=== PATIENT | female | born 1985 | race Caucasian/White ===

== ENCOUNTER 2017-09-16 11:17 | Emergency (ER) | payer SELFPAY ==
[~2017-09-16] VITALS: Ht 165.1 cm; Wt 111.6 kg
--- OUTSIDE RECORDS SUMMARY | 2017-09-16 11:26 | XMS REPORT | CCD ---
Author Author RUT JOSUE Organization Unknown Address [address] [address] [place], [place] [id number] Care Team Providers Care Event Manager Name Role Phone MARTIN KAISER, VIRGILIO Killian Attphys VIRGILIO SALAZAR MDsutommy Vital Signs Unknown or Not Available. Allergies Allergy Code Allergy Type Reaction Status PENICILLIN 28570 Drug allergy HIVES Active Procedures Procedure Code Procedure Type Date ABDOMEN 2 VIEW DECUB/UPRIGHT 935754381 SNOMED CT 2014 ^CBC W/AUTO DIFF 3608158 SNOMED CT 07/18/2014 URINALYSIS C&S IF IND 295042856 SNOMED CT 07/18/[address] 07/18/2014 CBC W/ AUTO DIFF (RFLX MAN DIFF IF IND) 7665879 SNOMED CT 07/18/2014 COMPREHENSIVE METABOLIC PANEL 546840154 SNOMED CT [address] 07/18/[address] 07/18/2014 History of Immunizations Immunization Code Date Td (adult), adsorbed 09 11/04/2002 HPV, quadrivalent 62 04/25/2006 HPV, quadrivalent 62 07/25/2006 Tdap 115 10/11/2010 Problems Problem Code Start Date Resolved Date Status Cyclical vomiting, intractable 78695362 Active GASTROENTERITIS 5589 Active Results COMPREHENSIVE METABOLIC PANEL - Collect Date/Time: 07/18/2014 09:25 Test Name Code Test Result Test Units Test Ref Range GLUCOSE 2345-7 132 MG/DL L=70 H=100 SODIUM 2951-2 140 MEQ/L L=135 H=148 POTASSIUM 2823-3 3.8 MEQ/L L=3.5 H=5.3 CHLORIDE 2075-0 106 MEQ/L L=96 H=110 CO2 2028-9 26 MEQ/L L=22 H=29 BUN 3094-0 7 MG/DL L=8 H=22 CREATININE 2160-0 0.8 MG/DL L=0.6 H=1.6 SGOT/AST 1920-8 15 IU/L L=10 H=40 SGPT/ALT 1742-6 27 IU/L L=8 H=54 ALK PHOS 6768-6 57 IU/L L=35 H=115 TOTAL PROTEIN 2885-2 6.7 G/DL L=5.5 H=8.5 ALBUMIN 1751-7 3.3 G/DL L=3.1 H=5.4 TOTAL BILI 1975-2 1.0 MG/DL L=0.0 H=1.5 CALCIUM 08837-4 9.5 MG/DL L=8.2 H=10.6 AGE 28 yrs GFR NonAA 87 GFR AA 105 eGFR >60 N/A eGFR AA* >60 N/A LIPASE - Collect Date/Time: 07/18/2014 09:25 Test Name Code Test Result Test Units Test Ref Range LIPASE 3040-3 12 U/L L=8 H=78 CBC W/ AUTO DIFF (RFLX MAN DIFF IF IND) - Collect Date/Time: 07/18/2014 09:25 Test Name Code Test Result Test Units Test Ref Range WBC 87962-6 7.9 TH/CMM L=4.5 H=10.8 RBC 789-8 4.65 ML/CMM L=4.20 H=5.40 HGB 718-7 14.4 G/DL L=12.0 H=16.0 HCT 4544-3 41.0 % L=37.0 H=47.0 MCV 88 FL L=81 H=99 MCH 31.0 PG L=27.0 H=33.0 MCHC 35.1 G/DL L=31.0 H=36.0 RDW SD 41 FL L=36 H=50 RDW CV 12.9 % L=0.0 H=14.8 MPV 10.8 FL L=9.3 H=12.5 PLT 777-3 251 TH/CMM L=130 H=440 NRBC# 0.00 TH/CMM L=0.00 H=0.00 NRBC% 0.0 /100WBC L=0.0 H=2.0 %NEUT 69.4 % %LYMP 21.7 % %MONO 6.7 % %EOS 1.9 % %BASO 0.3 % #NEUT 5.51 TH/CMM L=2.10 H=8.20 #LYMP 1.72 TH/CMM L=0.90 H=5.20 #MONO 0.53 TH/CMM L=0.16 H=1.00 #EOS 0.15 TH/CMM L=0.00 H=0.80 #BASO 0.02 TH/CMM L=0.00 H=0.20 MANUAL DIFF NOT IND N/A TEST - Collect Date/Time: 07/18/2014 09:25 Test Name Code Test Result Test Units Test Ref Range TEST 2118-8 NEGATIVE N/A AMYLASE - Collect Date/Time: 07/18/2014 09:25 Test Name Code Test Result Test Units Test Ref Range AMYLASE 1798-8 35 IU/L L=25 H=125 URINALYSIS C&S IF IND - Collect Date/Time: 07/18/2014 10:01 Test Name Code Test Result Test Units Test Ref Range COLOR YELLOW N/A NL: YELLOW APPEARANCE CLEAR N/A NL: CLEAR SPEC GRAV 1.025 N/A NL: 1.002 - 1.022 pH 6.5 N/A NL: 5 - 9 PROTEIN 30 N/A NL: NEGATIVE mg/dl GLUCOSE NEGATIVE N/A NL: NEGATIVE mg/dl KETONE TRACE N/A NL: NEGATIVE mg/dl BILIRUBIN NEGATIVE N/A NL: NEGATIVE BLOOD NEGATIVE N/A NL: NEGATIVE NITRITE NEGATIVE N/A NL: NEGATIVE LEUK SCREEN NEGATIVE N/A NL: NEGATIVE WBC/HPF NEGATIVE N/A NL: NEGATIVE RBC/HPF NEGATIVE N/A NL: NEGATIVE CASTS/LPF NEGATIVE N/A NL: NEGATIVE CRYSTALS TRACE AMORPH N/A NL: NEGATIVE MUCOUS THRDS 1+ N/A NL: NEGATIVE BACTERIA FEW N/A NL: NEGATIVE EPITH CELLS 1+ SQUAMOUS N/A NL: NEGATIVE TRICHOMONAS NEGATIVE N/A NL: NEGATIVE YEAST NEGATIVE N/A NL: NEGATIVE CULT SET UP? NO N/A Active Medications Unknown or Not Available. Medications Administered During Visit Unknown or Not Available. Encounters Encounter Diagnosis Diagnosis Code Start Date INFECTIOUS ENTERITIS NOS 0090 07/18/2014 Social History Smoking Status Code Start Date End Date Never smoker [id number] Patient Decision Aids Unknown or Not Available. Discharge Instructions You were admitted to [facility] on 07/18/2014 with a principal diagnosis of INFECTIOUS ENTERITIS NOS. You were discharged from [facility] on 07/18/2014. Should you have any questions prior to discharge, please contact a member of your healthcare team. If you have left the hospital and have any questions, please contact your primary care physician. Chief Complaint and Reason For Visit Chief Complaint Date of Onset CONSTIPATION VOMITING Function Status Unknown or Not Available. Referral/Transition of Care Unknown or Not Available.
--- OUTSIDE RECORDS SUMMARY | 2017-09-16 11:26 | XMS REPORT | CCD ---
Author Author RIDDHI VALENCIA Organization Unknown Address [address] [address] [place] [address] Care Team Providers Care Hand Zipper Trimmer Name Role Phone MARCELINA PHYS, JACK ER Attphys MARCELINA PHYS, JACK ER Prisurg Allergies Allergy Code Allergy Type Reaction Status No Known Drug Allergies 0 Drug allergy Active Active Medications Medication Code Dose Units Frequency Route Modification Start Date/Time Protonix 40MG Oral Tablet, Enteric Coated 569815 40 MILLIGRAMS DAILY ORAL 06/27/2015 10:00 Prescription Detail 40 MILLIGRAMS ORAL DAILY Problems Problem Code Start Date Resolved Date Status Cyclical vomiting, intractable 25129529 Active Hypokalemia 77784281 08/24/2014 Active Procedures Unknown or Not Available. Results Unknown or Not Available. Encounters Encounter Diagnosis Diagnosis Code Start Date Cramp and spasm R252 07/06/2016 Function Status Unknown or Not Available. History of Immunizations Immunization Code Date Td (adult), adsorbed 09 11/04/2002 HPV, quadrivalent 62 04/25/2006 HPV, quadrivalent 62 07/25/2006 Tdap 115 10/11/2010 Social History Smoking Status Code Start Date End Date Never smoker 924300140 Vital Signs Unknown or Not Available. Function Status Unknown or Not Available. Goals Unknown or Not Available. ASSESSMENTS Unknown or Not Available. Health Concerns Section Unknown or Not Available.
--- OUTSIDE RECORDS SUMMARY | 2017-09-16 11:26 | XMS REPORT | CCD ---
Author Author RUT JOSUE Organization Unknown Address [address] [facility] [address] [place] [address] Care Team Providers Care Bend Sorter Name Role Phone WEST ELIZABETH ER, MAGALIS DO Attphys WEST ELIZABETH ER, MAGALIS DO Prisurg Allergies Allergy Code Allergy Type Reaction Status No Known Drug Allergies 0 Drug allergy Active Active Medications Medication Code Dose Units Frequency Route Modification Start Date/Time Protonix 40MG Oral Tablet, Enteric Coated 341955 40 MILLIGRAMS DAILY ORAL 06/27/2015 10:00 Prescription Detail 40 MILLIGRAMS ORAL DAILY Problems Problem Code Start Date Resolved Date Status Cyclical vomiting, intractable 94097763 Active Hypokalemia 79416702 08/24/2014 Active Procedures Procedure Code Procedure Type Date ^UA AUTO DIPSTICK ONLY 725486105 SNOMED CT 07/01/2016 UA ROUTINE C&S IF IND 488043812 SNOMED CT 07/01/2016 RAPID DRUG SCREEN 412173607 SNOMED CT 07/01/[address] 07/01/[address] 07/01/2016 ^CBC W/AUTO DIFF 4748931 SNOMED CT 07/01/[address] 07/01/[address] 07/01/2016 COMPREHENSIVE METABOLIC PANEL 983474804 SNOMED CT 2016 CBC W/ AUTO DIFF (RFLX MAN DIFF IF IND) 5294850 SNOMED CT 07/01/2016 Results COMPREHENSIVE METABOLIC PANEL - Collect Date/Time: 07/01/2016 08:15 Test Name Code Test Result Test Units Test Ref Range GLUCOSE 2345-7 159 MG/DL L=70 H=100 SODIUM 2951-2 134 MEQ/L L=135 H=148 POTASSIUM 2823-3 2.6 MEQ/L L=3.5 H=5.3 CHLORIDE 2075-0 92 MEQ/L L=96 H=110 CO2 2028-9 26 MEQ/L L=22 H=29 BUN 3094-0 13 MG/DL L=8 H=22 CREATININE 2160-0 0.8 MG/DL L=0.6 H=1.6 SGOT/AST 1920-8 17 IU/L L=10 H=40 SGPT/ALT 1742-6 25 IU/L L=8 H=54 ALK PHOS 6768-6 64 IU/L L=35 H=115 TOTAL PROTEIN 2885-2 7.6 G/DL L=5.5 H=8.5 ALBUMIN 1751-7 4.6 G/DL L=3.1 H=5.4 TOTAL BILI 1975-2 1.3 MG/DL L=0.0 H=1.5 CALCIUM 28105-4 9.8 MG/DL L=8.2 H=10.6 AGE 30 yrs GFR NonAA 85 GFR AA 103 eGFR >60 N/A eGFR AA* >60 N/A LIPASE - Collect Date/Time: 07/01/2016 08:15 Test Name Code Test Result Test Units Test Ref Range LIPASE 3040-3 8 U/L L=8 H=78 MAGNESIUM - Collect Date/Time: 07/01/2016 08:15 Test Name Code Test Result Test Units Test Ref Range MAGNESIUM 97560-4 2.2 MG/DL L=1.7 H=2.8 PHOSPHORUS - Collect Date/Time: 07/01/2016 08:15 Test Name Code Test Result Test Units Test Ref Range PHOSPHORUS 2777-1 2.7 MG/DL L=2.5 H=4.5 RAPID DRUG SCREEN - Collect Date/Time: 07/01/2016 10:20 Test Name Code Test Result Test Units Test Ref Range Cannabinoids (THC) NON-NEGATIVE N/A NEG: < 50 ng/ml Phencyclidine (PCP) NEGATIVE N/A NEG: < 25 ng/ ml Cocaine NEGATIVE N/A NEG: < 300 ng/ml Methamphetamine NEGATIVE N/A NEG: < 1000 ng/ml Opiates NEGATIVE N/A NEG: < 300 ng/ml Amphetamine NEGATIVE N/A NEG: < 1000 ng/ml Benzodiazepines NEGATIVE N/A NEG: < 300 ng/ml Tricyclic Antidepres NEGATIVE N/A NEG: < 300 ng/ ml Methadone NEGATIVE N/A NEG: < 300 ng/ml Barbiturates NEGATIVE N/A NEG: < 200 ng/ml Oxycodone NEGATIVE N/A NEG: < 100 ng/ml Propoxyphene (PPX) NEGATIVE N/A NEG: < 300 ng/ ml CBC W/ AUTO DIFF (RFLX MAN DIFF IF IND) - Collect Date/Time: 07/01/2016 08:15 Test Name Code Test Result Test Units Test Ref Range WBC 63779-9 15.0 TH/CMM L=4.5 H=10.8 RBC 789-8 5.05 ML/CMM L=4.20 H=5.40 HGB 718-7 15.5 G/DL L=12.0 H=16.0 HCT 4544-3 41.6 % L=37.0 H=47.0 MCV 82 FL L=81 H=99 MCH 30.7 PG L=27.0 H=33.0 MCHC 37.3 G/DL L=31.0 H=36.0 RDW SD 35 FL L=36 H=50 RDW CV 11.8 % L=0.0 H=14.8 MPV 10.1 FL L=9.3 H=12.5 PLT 777-3 339 TH/CMM L=130 H=440 NRBC# 0.00 TH/CMM L=0.00 H=0.00 NRBC% 0.0 /100WBC L=0.0 H=2.0 %NEUT 75.8 % %LYMP 15.4 % %MONO 8.2 % %EOS 0.1 % %BASO 0.1 % #NEUT 11.36 TH/CMM L=2.10 H=8.20 #LYMP 2.31 TH/CMM L=0.90 H=5.20 #MONO 1.23 TH/CMM L=0.16 H=1.00 #EOS 0.02 TH/CMM L=0.00 H=0.80 #BASO 0.02 TH/CMM L=0.00 H=0.20 MANUAL DIFF NOT IND N/A UA ROUTINE C&S IF IND - Collect Date/Time: 07/01/2016 10:00 Test Name Code Test Result Test Units Test Ref Range COLOR YELLOW N/A NL: YELLOW APPEARANCE CLEAR N/A NL: CLEAR SPEC GRAV 1.010 N/A NL: 1.002 - 1.022 pH 8.0 N/A NL: 5 - 9 PROTEIN NEGATIVE N/A NL: NEGATIVE mg/dl GLUCOSE NEGATIVE N/A NL: NEGATIVE mg/dl KETONE 15 N/A NL: NEGATIVE mg/dl BILIRUBIN NEGATIVE N/A NL: NEGATIVE BLOOD NEGATIVE N/A NL: NEGATIVE NITRITE NEGATIVE N/A NL: NEGATIVE LEUK SCREEN NEGATIVE N/A NL: NEGATIVE MICRO INDICATED? NOT INDICATED N/A TEST - Collect Date/Time: 07/01/2016 08:15 Test Name Code Test Result Test Units Test Ref Range TEST 2118-8 NEGATIVE N/A Function Status Unknown or Not Available. History of Immunizations Immunization Code Date Td (adult), adsorbed 11/04/2002 HPV, quadrivalent 62 04/25/2006 HPV, quadrivalent 62 07/25/2006 Tdap 115 10/11/2010 Plan of Treatment Unknown or Not Available. Social History Smoking Status Code Start Date End Date Never smoker [id number] Vital Signs Unknown or Not Available. Function Status Unknown or Not Available. Goals Unknown or Not Available. ASSESSMENTS Unknown or Not Available. Health Concerns Section Unknown or Not Available.
--- OUTSIDE RECORDS SUMMARY | 2017-09-16 11:28 | XMS REPORT ---
Author Author Rohan Marlow [facility] Address [address] [place], [place] [id number] Care Team Providers Care Chemotherapist Name Role Phone Rohan Marlow PCP Allergies and Adverse Reactions Name Reaction Notes PENICILLINS unknown mother told her as a child Plan of Treatment Not available. Medications Active Name Start Date Estimated Completion Date SIG Comments lisinopril-hydrochlorothiazide 20-12.5 mg oral tablet 01/22/2015 take 1 tablet by oral route once daily Protonix 40 mg oral tablet,delayed release (DR/EC) take 1 tablet (40 mg ) by oral route once daily Zofran (as hydrochloride) 4 mg oral tablet take 1 tablet by oral route Q4-6H PRN promethazine 25 mg oral tablet take 1 tablet (25 mg) by oral route every 4-6 hours as needed Name Start Date Expiration Date SIG Comments Lotrisone 1-0.05 % topical cream 11/03/2009 11/10/2009 apply to the affected and surrounding areas of skin by topical route 2 times per day morning and evening for 7 days Zithromax Z-Willian 250 mg oral tablet 01/04/2010 01/09/2010 take 2 tablets ( 500 mg) by oral route once daily for 1 day then 1 tablet (250 mg) by oral route once daily for 4 days Macrobid 100 mg oral capsule 04/29/2010 05/06/2010 take 1 capsule (100 mg) by oral route every 12 hours with food for 7 days Zofran (as hydrochloride) 4 mg oral tablet 05/21/2010 06/20/2010 One tablet every 8 hours as needed for nausea clotrimazole 1 % topical cream 05/25/2010 07/24/2010 apply to the affected and surrounding areas of skin by topical route 2 times per day in the morning and evening for 30 days Zofran (as hydrochloride) 8 mg oral tablet 09/30/2010 09/30/2010 Take one tablet every 8 hours as needed for nausea acyclovir 400 mg oral tablet 10/05/2010 11/04/2010 take 1 tablet by oral route 2 times a day for 30 days Flexeril 10 mg oral tablet 02/15/2011 take 1 tablet by mouth at bedtime. cyclobenzaprine 10 mg oral tablet 06/13/2013 07/04/2013 take 1 tablet (10 mg) by oral route 3 times per day for 21 days azithromycin 250 mg oral tablet 07/25/2013 07/30/2013 take 2 tablets (500 mg) by oral route once daily for 1 day then 1 tablet (250 mg) by oral route once daily for 4 days Carafate 1 gram oral tablet 08/15/2014 11/13/2014 take 1 tablet (1 gram) by oral route 4 times per day on an empty stomach 1 hour before meals and at bedtime for 30 days Flagyl 500 mg oral tablet 08/18/2014 09/01/2014 take 1 tablet (500 mg) by oral route 3 times per day for 14 days Carafate 1 gram oral tablet 12/11/2014 03/11/2015 take 1 tablet by oral route 3 times a day for 30 days Nexium 40 mg oral capsule,delayed release(DR/EC) 12/11/2014 03/11/2015 take 1 capsule by oral route daily for 30 days in the AM amoxicillin 500 mg oral tablet 01/22/2015 01/29/2015 take 2 tablets by oral route 2 times a day for 7 days clindamycin HCl 300 mg oral capsule 03/24/2015 03/31/2015 take 1 capsule (300 mg) by oral route 2 times per day for 7 days Discontinued Name Start Date Discontinued Date SIG Comments Valtrex 500 mg oral tablet 10/04/2010 10/05/2010 take 1 tablet (500 mg) by oral route daily for 30 days Formulary Compliance Mobic 15 mg oral tablet 06/13/2013 08/05/2014 take 1 tablet (15 mg) by oral route once daily Reglan 10 mg oral tablet 08/01/2014 12/11/2014 take 1 tablet (10 mg) by oral route 4 times per day as needed for nausea and/or vomiting Ambien 10 mg oral tablet 12/11/2014 take 1 tablet (10 mg) by oral route once daily at bedtime pantoprazole 40 mg oral tablet,delayed release (DR/EC) 08/15/2014 12/11/2014 take 1 tablet (40 mg) by oral route once daily for 30 days Biaxin 500 mg oral tablet 08/18/2014 09/03/2014 take 1 tablet (500 mg) by oral route 2 times per day for 14 days tramadol 50 mg oral tablet 01/22/2015 03/24/2015 take 1 tablet (50 mg) by oral route every 6 hours as needed Problem List Description Status Onset Abdominal Pain, RUQ Active Nausea & vomiting Active Back pain Active Vital Signs Date Time BP-Sys(mm[Hg] BP-Tiffany(mm[Hg]) HR(bpm) RR(rpm) Temp WT HT HC BMI BSA BMI Percentile O2 Sat(%) 09/18/2015 11:14:00 AM 130 mmHg 72 mmHg 83 bpm 14 rpm 98.1 F 237.375 lbs 65 in 39.50 kg/m2 2.22 m2 98 % 06/24/2015 10:49:00 AM 156 mmHg 86 mmHg 71 bpm 24 rpm 95.3 F 229 lbs 65 in 38.1072 kg/m 2.1826 m 100 % 03/24/2015 2:50:00 PM 130 mmHg 68 mmHg 67 bpm 18 rpm 97.2 F 245.375 lbs 65 in 40.83 kg/m2 2.26 m2 98 % 02/18/2015 9:45:00 AM 118 mmHg 79 mmHg 75 bpm 20 rpm 98.1 F 246.6 lbs 99 % 01/22/2015 9:08:00 AM 140 mmHg 80 mmHg 81 bpm 18 rpm 97.9 F 252.125 lbs 65 in 41.96 kg/m2 2.29 m2 99 % 12/11/2014 9:27:00 AM 132 mmHg 72 mmHg 83 bpm 18 rpm 96.6 F 247.375 lbs 65 in 41.1649 kg/m 2.2685 m 99 % 08/05/2014 9:55:00 AM 132 mmHg 86 mmHg 84 bpm 20 rpm 96 F 227 lbs 65 in 37.77 kg/m2 2.17 m2 99 % 08/01/2014 9:28:00 AM 84 bpm 20 rpm 98.1 F 227.4 lbs 100 % 07/25/2013 1:50:00 PM 120 mmHg 72 mmHg 82 bpm 16 rpm 98.2 F 98 % 06/13/2013 3:04:00 PM 128 mmHg 80 mmHg 76 bpm 18 rpm 98.3 F 98 % 07/16/2012 11:25:00 AM 94 bpm 20 rpm 97 F 252 lbs 63 in 44.6393 kg/m 2.2541 m 99 % 03/22/2011 10:14:00 AM 128 mmHg 76 mmHg 82 bpm 18 rpm 98.1 F 217.375 lbs 65 in 36.17 kg/m2 2.13 m2 02/15/2011 10:32:00 AM 126 mmHg 62 mmHg 68 bpm 18 rpm 97.2 F 216.25 lbs 65.5 in 35.4382 kg/m 2.1291 m 01/17/2011 10:02:00 AM 128 mmHg 53 mmHg 74 bpm 97.6 F 205 lbs 65.5 in 33.59 kg/m2 2.07 m2 12/29/2010 11:21:00 AM 123 mmHg 68 mmHg 72 bpm 97.2 F 205 lbs 65.5 in 33.5946 kg/m 2.073 m 09/29/2010 3:19:00 PM 123 mmHg 66 mmHg 80 bpm 98.4 F 212.375 lbs 65.5 in 34.80 kg/m2 2.11 m2 07/28/2010 10:29:00 AM 115 mmHg 70 mmHg 94 bpm 97.1 F 211 lbs 99 % 06/21/2010 10:14:00 AM 135 mmHg 82 mmHg 89 bpm 96.4 F 214.375 lbs 99 % 05/21/2010 11:27:00 AM 110 mmHg 75 mmHg 71 bpm 97.2 F 206.25 lbs 99 % 04/29/2010 2:03:00 PM 115 mmHg 70 mmHg 107 bpm 18 rpm 97.8 F 202.25 lbs 99 % 03/05/2010 9:15:00 AM 135 mmHg 82 mmHg 66 bpm 98.3 F 229 lbs 100 % 02/15/2010 1:35:00 PM 130 mmHg 72 mmHg 68 bpm 16 rpm 98.1 F 241.125 lbs 01/07/2010 9:27:00 AM 124 mmHg 76 mmHg 60 bpm 16 rpm 97.7 F 236.25 lbs 01/04/2010 11:27:00 AM 132 mmHg 78 mmHg 72 bpm 16 rpm 98.9 F 236.5 lbs 11/27/2009 10:13:00 AM 123 mmHg 85 mmHg 63 bpm 97.9 F 238.375 lbs 99 % 11/03/2009 11:11:00 AM 137 mmHg 80 mmHg 80 bpm 16 rpm 97.8 F 237 lbs 11/03/2009 11:03:00 AM 132 mmHg 80 mmHg 11/03/2009 11:03:00 AM 138 mmHg 82 mmHg 11/03/2009 11:03:00 AM 128 mmHg 80 mmHg 07/20/2009 2:08:00 PM 114 mmHg 89 mmHg 98 bpm 22 rpm 242.562 lbs 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 Alcohol Use Tobacco Never smoker History of Procedures Date Ordered Description Order Status 12/11/2014 12:00 AM COMPLETE CBC W/AUTO DIFF WBC Returned 12/11/2014 12:00 AM COMPREHEN METABOLIC PANEL Returned 12/11/2014 12:00 AM HELICOBACTER PYLORI ANTIBODY Returned 01/17/2011 12:00 AM URINE TEST Reviewed 01/17/2011 12:00 AM INSERT INTRAUTERINE DEVICE Reviewed 01/17/2011 12:00 AM Mirena Reviewed 03/22/2011 12:00 AM X-RAY EXAM SACRUM TAILBONE Reviewed 09/18/2015 12:00 AM Decadron, Per 1 Mg [facility]# [id number] Reviewed 09/18/2015 12:00 AM Depo-Medrol, Per 80 Mg [facility]#[address]-97 Reviewed 07/16/2012 12:00 AM Depo-Medrol 80 mg [facility]#[id number] Reviewed 07/16/2012 12:00 AM Decadron 4 mg [facility]#[id number] Reviewed 07/16/2012 12:00 AM THER/PROPH/DIAG INJ SC/IM Reviewed 11/03/2009 12:00 AM COMPLETE CBC W/AUTO DIFF WBC Reviewed 11/03/2009 12:00 AM COMPREHEN METABOLIC PANEL Reviewed 01/04/2010 12:00 AM HERPES SIMPLEX TYPE 1 TEST Reviewed 02/25/2010 12:00 AM THER/PROPH/DIAG INJ SC/IM Reviewed 03/01/2010 12:00 AM THER/PROPH/DIAG INJ SC/IM Reviewed 03/05/2010 12:00 AM OBSTETRIC PANEL Reviewed 03/05/2010 12:00 AM URINALYSIS NONAUTO W/SCOPE Reviewed 03/05/2010 12:00 AM COMPLETE CBC W/AUTO DIFF WBC Reviewed 03/05/2010 12:00 AM METABOLIC PANEL TOTAL CA Reviewed 03/05/2010 12:00 AM THER/PROPH/DIAG INJ SC/IM Reviewed 02/24/2010 12:00 AM THER/PROPH/DIAG INJ SC/IM Reviewed 04/22/2010 12:00 AM OBSTETRIC PANEL Reviewed 04/22/2010 12:00 AM METABOLIC PANEL TOTAL CA Reviewed 04/29/2010 12:00 AM URINALYSIS NONAUTO W/SCOPE Reviewed 05/21/2010 12:00 AM URINALYSIS NONAUTO W/SCOPE Reviewed 04/22/2010 12:00 AM ROUTINE VENIPUNCTURE Reviewed 07/28/2010 12:00 AM URINALYSIS NONAUTO W/SCOPE Reviewed 07/28/2010 12:00 AM GLUCOSE TEST Reviewed 08/01/2014 12:00 AM General Surgery Consult Reviewed 08/05/2014 12:00 AM COMPREHEN METABOLIC PANEL Returned 08/05/2014 12:00 AM COMPLETE CBC W/AUTO DIFF WBC Returned 09/29/2010 12:00 AM CULTURE OTHR SPECIMN AEROBIC Reviewed 09/29/2010 12:00 AM GLUCOSE TEST Reviewed 09/29/2010 12:00 AM Type and screen Reviewed 09/29/2010 12:00 AM COMPLETE CBC W/AUTO DIFF WBC Reviewed Results Summary Data and Description Results 11/03/2009 11:31 AM GLUCOSE 109.0 mg/dLSODIUM 139.0 mmol/LPOTASSIUM 4.10 mmol/ LCHLORIDE 108.0 mmol/LCO2 26.0 mmol/LBUN 11.0 mg/dLCREATININE 0.80 mg/dLSGOT/ AST 16.0 IU/LSGPT/ALT 24.0 IU/LALK PHOS 76.0 IU/LTOTAL PROTEIN 7.0 g/dLALBUMIN 4.0 g/dLTOTAL BILI 0.70 mg/dLCALCIUM 9.20 mg/dLeGFR >60 mL/min/1.73 m2WBC 8.4 RBC 4.84 HGB 14.70 g/dLHCT 41.10 %MCV 85.0 fLMCH 30.40 pgMCHC 35.80 g/dLRDW CV 12.50 %MPV 10.90 fLPLT 278 %NEUT 61.30 %%LYMP 26.90 %%MONO 8.30 %%EOS 3.0 %% BASO 0.50 %#NEUT 5.18 #LYMP 2.27 #MONO 0.70 #EOS 0.25 #BASO 0.04 03/05/2010 10:05 AM COLOR YELLOW APPEARANCE CLOUDY SPEC GRAV 1.015 pH 7.0 PROTEIN NEGATIVE GLUCOSE NEGATIVE KETONE >=80 BILIRUBIN NEGATIVE BLOOD NEGATIVE NITRITE NEGATIVE LEUK SCREEN NEGATIVE CASTS/LPF NEGATIVE CRYSTALS 2++ AMORPHOUS MUCOUS THRDS NEGATIVE BACTERIA 1+ EPITH CELLS 3+++ SQUAMOUS TRICHOMONAS NEGATIVE YEAST NEGATIVE WBC 14.3 RBC 4.93 HGB 15.10 g/dLHCT 41.40 %MCV 84.0 fLMCH 30.60 pgMCHC 36.50 g/dLRDW CV 12.70 %MPV 10.40 fLPLT 270 %NEUT 77.70 %% LYMP 15.20 %%MONO 6.60 %%EOS 0.30 %%BASO 0.20 %#NEUT 11.13 #LYMP 2.17 #MONO 0.95 #EOS 0.04 #BASO 0.03 GLUCOSE 108.0 mg/dLSODIUM 131.0 mmol/LPOTASSIUM 3.60 mmol/LCHLORIDE 99.0 mmol/LCO2 19.0 mmol/LBUN 7.0 mg/dLCREATININE 0.70 mg/ dLCALCIUM 9.70 mg/dLeGFR >60 mL/min/1.73 m2 03/06/2010 6:45 AM ACETONE NEGATIVE TSH 0.370 uIU/mLWBC 12.5 RBC 4.51 HGB 13.90 g/dLHCT 37.90 %MCV 84.0 fLMCH 30.80 pgMCHC 36.70 g/dLRDW CV 12.70 %MPV 10.20 fLPLT 235 %NEUT 78.80 %%LYMP 13.10 %%MONO 7.50 %%EOS 0.40 %%BASO 0.20 %# NEUT 9.84 #LYMP 1.64 #MONO 0.93 #EOS 0.05 #BASO 0.02 GLUCOSE 108.0 mg/dLSODIUM 130.0 mmol/LPOTASSIUM 3.10 mmol/LCHLORIDE 103.0 mmol/LCO2 19.0 mmol/LBUN 5.0 mg/ dLCREATININE 0.60 mg/dLCALCIUM 8.40 mg/dLeGFR >60 mL/min/1.73 m2 03/07/2010 7:00 AM WBC 11.5 RBC 4.49 HGB 13.80 g/dLHCT 37.50 %MCV 84.0 fLMCH 30.70 pgMCHC 36.80 g/dLRDW CV 12.80 %MPV 10.10 fLPLT 220 %NEUT 75.90 %%LYMP 14.50 %%MONO 8.90 %%EOS 0.40 %%BASO 0.30 %#NEUT 8.73 #LYMP 1.67 #MONO 1.03 #EOS 0.05 #BASO 0.03 GLUCOSE 102.0 mg/dLSODIUM 130.0 mmol/LPOTASSIUM 3.50 mmol/ LCHLORIDE 101.0 mmol/LCO2 19.0 mmol/LBUN 4.0 mg/dLCREATININE 0.50 mg/dLCALCIUM 8.90 mg/dLeGFR >60 mL/min/1.73 m2 03/07/2010 4:21 PM COLOR YELLOW APPEARANCE CLEAR SPEC GRAV <=1.005 pH 6.5 PROTEIN NEGATIVE GLUCOSE NEGATIVE KETONE 15 BILIRUBIN NEGATIVE BLOOD NEGATIVE NITRITE NEGATIVE LEUK SCREEN NEGATIVE CASTS/LPF NEGATIVE CRYSTALS NEGATIVE MUCOUS THRDS NEGATIVE BACTERIA NEGATIVE EPITH CELLS 1+ SQUAMOUS TRICHOMONAS NEGATIVE YEAST NEGATIVE 03/08/2010 5:30 AM WBC 15.0 %MONO 9.0 %%EOS 0.80 %%BASO 0.20 %#NEUT 11.07 # LYMP 2.38 #MONO 1.35 #EOS 0.12 #BASO 0.03 RBC 5.01 HGB 15.40 g/dLHCT 42.20 %MCV 84.0 [facility] 30.70 pgHC 36.50 g/dLRDW CV 13.0 %MPV 10.10 fLPLT 242 %NEUT 74.10 % %LYMP 15.90 %GLUCOSE 102.0 mg/dLSODIUM 129.0 mmol/LPOTASSIUM 3.40 mmol/ LCHLORIDE 98.0 mmol/LCO2 23.0 mmol/LBUN 5.0 mg/dLCREATININE 0.60 mg/dLCALCIUM 9.40 mg/dLeGFR >60 mL/min/1.73 m2 04/11/2010 6:25 AM GLUCOSE 121.0 mg/dLSODIUM 132.0 mmol/LPOTASSIUM 3.70 mmol/ LCHLORIDE 104.0 mmol/LCO2 16.0 mmol/LBUN 4.0 mg/dLCREATININE 0.50 mg/dLSGOT/AST 18.0 IU/LSGPT/ALT 16.0 IU/LALK PHOS 73.0 IU/LTOTAL PROTEIN 6.0 g/dLALBUMIN 3.30 g/dLTOTAL BILI 0.70 mg/dLCALCIUM 9.0 mg/dLeGFR >60 mL/min/1.73 m2 04/11/2010 9:15 AM WBC 12.4 RBC 4.11 HGB 12.70 g/dLHCT 35.20 %MCV 86.0 fLMCH 30.90 pgMCHC 36.10 g/dLRDW CV 13.90 %MPV 9.90 fLPLT 222 %NEUT 81.90 %%LYMP 12.10 %%MONO 5.60 %%EOS 0.20 %%BASO 0.20 %#NEUT 10.18 #LYMP 1.51 #MONO 0.69 # EOS 0.03 #BASO 0.02 04/22/2010 12:30 PM RUBELLA 83.0 IU/mLGLUCOSE 107.0 mg/dLSODIUM 137.0 mmol/ LPOTASSIUM 3.20 mmol/LCHLORIDE 102.0 mmol/LCO2 24.0 mmol/LBUN 4.0 mg/ dLCREATININE 0.50 mg/dLCALCIUM 9.0 mg/dLeGFR >60 mL/min/1.73 m2WBC 11.2 RBC 4.12 HGB 12.50 g/dLHCT 35.50 %MCV 86.0 fLMCH 30.30 pgMCHC 35.20 g/dLRDW CV 14.20 %MPV 11.10 fLPLT 241 %NEUT 76.60 %%LYMP 15.90 %%MONO 6.40 %%EOS 0.90 %% BASO 0.20 %#NEUT 8.57 #LYMP 1.78 #MONO 0.72 #EOS 0.10 #BASO 0.02 04/29/2010 2:53 PM COLOR YELLOW APPEARANCE CLOUDY SPEC GRAV 1.020 pH 7.0 PROTEIN 30 GLUCOSE 100 KETONE TRACE BILIRUBIN NEGATIVE BLOOD NEGATIVE NITRITE POSITIVE LEUK SCREEN SMALL CASTS/LPF NEGATIVE CRYSTALS 1+ CALCIUM OX MUCOUS THRDS NEGATIVE BACTERIA 2++ EPITH CELLS 4++++SQUAMOUS TRICHOMONAS NEGATIVE YEAST NEGATIVE 05/21/2010 11:50 AM COLOR YELLOW APPEARANCE CLOUDY SPEC GRAV 1.020 pH 7.5 PROTEIN TRACE GLUCOSE NEGATIVE KETONE NEGATIVE BILIRUBIN NEGATIVE BLOOD NEGATIVE NITRITE NEGATIVE LEUK SCREEN NEGATIVE CASTS/LPF NEGATIVE CRYSTALS 2++ AMORPHOUS MUCOUS THRDS NEGATIVE BACTERIA NEGATIVE EPITH CELLS FEW SQUAMOUS TRICHOMONAS NEGATIVE YEAST NEGATIVE 07/28/2010 12:21 PM COLOR YELLOW APPEARANCE CLEAR SPEC GRAV 1.020 pH 6.5 PROTEIN 30 GLUCOSE NEGATIVE KETONE NEGATIVE BILIRUBIN NEGATIVE BLOOD NEGATIVE NITRITE NEGATIVE LEUK SCREEN NEGATIVE CASTS/LPF NEGATIVE CRYSTALS NEGATIVE MUCOUS THRDS 1+ BACTERIA 1+ EPITH CELLS 1+ SQUAMOUS TRICHOMONAS NEGATIVE YEAST NEGATIVE 09/05/2010 4:20 AM GLUCOSE 125.0 mg/dLSODIUM 136.0 mmol/LPOTASSIUM 3.20 mmol/ LCHLORIDE 103.0 mmol/LCO2 22.0 mmol/LBUN 4.0 mg/dLCREATININE 0.50 mg/dLSGOT/AST 10.0 IU/LSGPT/ALT 9.0 IU/LALK PHOS 64.0 IU/LTOTAL PROTEIN 5.70 g/dLALBUMIN 3.20 g/dLTOTAL BILI 1.0 mg/dLCALCIUM 8.80 mg/dLeGFR >60 mL/min/1.73 m2WBC 9.4 RBC 4.00 HGB 12.60 g/dLHCT 36.20 %MCV 91.0 fLMCH 31.50 pgMCHC 34.80 g/dLRDW CV 13.60 %MPV 10.80 fLPLT 174 %NEUT 73.40 %%LYMP 17.80 %%MONO 8.0 %%EOS 0.50 %% BASO 0.30 %#NEUT 6.89 #LYMP 1.67 #MONO 0.75 #EOS 0.05 #BASO 0.03 09/29/2010 5:05 PM WBC 11.0 RBC 3.71 HGB 12.0 g/dLHCT 33.60 %MCV 91.0 fLMCH 32.30 pgMCHC 35.70 g/dLRDW CV 13.40 %MPV 11.0 fLPLT 201 %NEUT 72.90 %%LYMP 17.90 %%MONO 8.40 %%EOS 0.70 %%BASO 0.10 %#NEUT 8.01 #LYMP 1.96 #MONO 0.92 #EOS 0.08 #BASO 0.01 10/11/2010 7:53 AM WBC 8.3 RBC 3.84 HGB 12.50 g/dLHCT 35.20 %MCV 92.0 fLMCH 32.60 pgMCHC 35.50 g/dLRDW CV 13.50 %MPV 10.50 fLPLT 178 %NEUT 67.20 %%LYMP 22.70 %%MONO 8.30 %%EOS 1.40 %%BASO 0.40 %#NEUT 5.61 #LYMP 1.89 #MONO 0.69 #EOS 0.12 #BASO 0.03 08/05/2014 11:36 AM WBC 8.2 RBC 4.54 HGB 14.0 g/dLHCT 38.50 %MCV 85.0 fLH 30.80 pgMCHC 36.40 g/dLRDW CV 13.10 %MPV 10.80 fLPLT 269 %NEUT 58.70 %%LYMP 28.70 %%MONO 8.20 %%EOS 4.0 %%BASO 0.40 %#NEUT 4.82 #LYMP 2.35 #MONO 0.67 #EOS 0.33 #BASO 0.03 GLUCOSE 105.0 mg/dLSODIUM 141.0 mmol/LPOTASSIUM 3.30 mmol/ LCHLORIDE 101.0 mmol/LCO2 24.0 mmol/LBUN 5.0 mg/dLCREATININE 0.80 mg/dLSGOT/AST 27.0 IU/LSGPT/ALT 51.0 IU/LALK PHOS 60.0 IU/LTOTAL PROTEIN 6.10 g/dLALBUMIN 4.0 g/dLTOTAL BILI 1.40 mg/dLCALCIUM 9.60 mg/dLeGFR >60 mL/min/1.73 m2 08/06/2014 6:40 AM TEST UR NEGATIVE 08/10/2014 11:10 AM LIPASE 9.0 U/LAMYLASE 28 IU/LGLUCOSE 104.0 mg/dLSODIUM 140.0 mmol/LPOTASSIUM 3.10 mmol/LCHLORIDE 101.0 mmol/LCO2 25.0 mmol/LBUN 11.0 mg /dLCREATININE 0.80 mg/dLCALCIUM 9.30 mg/dLeGFR >60 mL/min/1.73 m2SGOT/AST 25.0 IU/LSGPT/ALT 82.0 IU/LALK PHOS 102.0 IU/LTOTAL PROTEIN 6.20 g/dLALBUMIN 3.90 g/ dLTOTAL BILI 2.10 mg/dLDIRECT BILI 0.60 mg/dLINDIRECT BILI 1.50 mg/dLWBC 9.6 RBC 4.48 HGB 13.90 g/dLHCT 38.40 %MCV 86.0 fLMCH 31.0 pgMCHC 36.20 g/dLRDW CV 13.30 %MPV 9.90 fLPLT 249 %NEUT 70.60 %%LYMP 18.10 %%MONO 8.70 %%EOS 2.30 %% BASO 0.30 %#NEUT 6.77 #LYMP 1.74 #MONO 0.83 #EOS 0.22 #BASO 0.03 08/11/2014 6:20 AM SGOT/AST 19.0 IU/LSGPT/ALT 56.0 IU/LALK PHOS 89.0 IU/LTOTAL PROTEIN 5.80 g/dLALBUMIN 3.60 g/dLTOTAL BILI 1.50 mg/dLDIRECT BILI 0.40 mg/ dLINDIRECT BILI 1.10 mg/dLGLUCOSE 88.0 mg/dLSODIUM 136.0 mmol/LPOTASSIUM 3.20 mmol/LCHLORIDE 104.0 mmol/LCO2 21.0 mmol/LBUN 7.0 mg/dLCREATININE 0.70 mg/ dLCALCIUM 8.70 mg/dLeGFR >60 mL/min/1.73 m2WBC 8.0 RBC 4.59 HGB 14.10 g/dLHCT 38.90 %MCV 85.0 fLMCH 30.70 pgMCHC 36.20 g/dLRDW CV 13.20 %MPV 10.10 fLPLT 237 % NEUT 62.60 %%LYMP 26.40 %%MONO 7.60 %%EOS 3.10 %%BASO 0.30 %#NEUT 5.00 #LYMP 2.11 #MONO 0.61 #EOS 0.25 #BASO 0.02 08/15/2014 8:15 AM TEST UR NEGATIVE 08/25/2014 6:10 AM GLUCOSE 108.0 mg/dLSODIUM 136.0 mmol/LPOTASSIUM 2.60 mmol/ LCHLORIDE 105.0 mmol/LCO2 23.0 mmol/LBUN 6.0 mg/dLCREATININE 0.70 mg/dLCALCIUM 8.10 mg/dLeGFR >60 mL/min/1.73 m2 08/26/2014 6:32 AM GLUCOSE 118.0 mg/dLSODIUM 138.0 mmol/LPOTASSIUM 3.20 mmol/ LCHLORIDE 109.0 mmol/LCO2 23.0 mmol/LBUN 4.0 mg/dLCREATININE 0.70 mg/dLCALCIUM 8.10 mg/dLeGFR >60 mL/min/1.73 m2 12/11/2014 10:00 AM WBC 7.8 RBC 4.52 HGB 13.80 g/dLHCT 38.60 %MCV 85.0 fLMCH 30.50 pgMCHC 35.80 g/dLRDW CV 12.60 %MPV 10.70 fLPLT 259 %NEUT 59.90 %%LYMP 29.50 %%MONO 7.40 %%EOS 2.80 %%BASO 0.40 %#NEUT 4.70 #LYMP 2.31 #MONO 0.58 #EOS 0.22 #BASO 0.03 GLUCOSE 92.0 mg/dLSODIUM 140.0 mmol/LPOTASSIUM 3.90 mmol/ LCHLORIDE 107.0 mmol/LCO2 26.0 mmol/LBUN 12.0 mg/dLCREATININE 0.80 mg/dLSGOT/ AST 14.0 IU/LSGPT/ALT 21.0 IU/LALK PHOS 65.0 IU/LTOTAL PROTEIN 6.60 g/dLALBUMIN 4.10 g/dLTOTAL BILI 0.60 mg/dLCALCIUM 9.20 mg/dLeGFR >60 mL/min/1.73mH. pylori , IgG Abs 1.40 U/mLH. pylori, IgA Abs 3.7 Units 12/15/2014 2:00 PM C REACTIVE PROTEIN <0.5 mg/LWBC 11.3 RBC 5.13 HGB 15.90 g/ dLHCT 43.10 %MCV 84.0 fLMCH 31.0 pgMCHC 36.90 g/dLRDW CV 12.80 %MPV 10.30 fLPLT 302 %NEUT 65.60 %%LYMP 26.0 %%MONO 7.80 %%EOS 0.40 %%BASO 0.20 %#NEUT 7.38 # LYMP 2.93 #MONO 0.88 #EOS 0.05 #BASO 0.02 GLUCOSE 116.0 mg/dLSODIUM 135.0 mmol/ LPOTASSIUM 3.10 mmol/LCHLORIDE 99.0 mmol/LCO2 24.0 mmol/LBUN 9.0 mg/ dLCREATININE 0.80 mg/dLSGOT/AST 14.0 IU/LSGPT/ALT 23.0 IU/LALK PHOS 58.0 IU/ LTOTAL PROTEIN 7.50 g/dLALBUMIN 4.50 g/dLTOTAL BILI 1.50 mg/dLCALCIUM 9.90 mg/ dLeGFR >60 mL/min/1.73m 12/15/2014 10:06 PM COLOR YELLOW APPEARANCE HAZY SPEC GRAV 1.015 pH 7.0 PROTEIN NEGATIVE GLUCOSE NEGATIVE mg/dLKETONE >=80 BILIRUBIN SMALL BLOOD NEGATIVE NITRITE NEGATIVE LEUK SCREEN NEGATIVE 12/16/2014 6:10 AM WBC 11.2 RBC 4.94 HGB 15.20 g/dLHCT 41.80 %MCV 85.0 fLMCH 30.80 pgMCHC 36.40 g/dLRDW CV 12.70 %MPV 10.40 fLPLT 296 %NEUT 66.0 %%LYMP 25.90 %%MONO 7.10 %%EOS 0.70 %%BASO 0.30 %#NEUT 7.38 #LYMP 2.90 #MONO 0.80 #EOS 0.08 #BASO 0.03 GLUCOSE 116.0 mg/dLSODIUM 134.0 mmol/LPOTASSIUM 3.10 mmol/ LCHLORIDE 101.0 mmol/LCO2 24.0 mmol/LBUN 8.0 mg/dLCREATININE 0.80 mg/dLSGOT/AST 13.0 IU/LSGPT/ALT 22.0 IU/LALK PHOS 61.0 IU/LTOTAL PROTEIN 6.80 g/dLALBUMIN 4.30 g/dLTOTAL BILI 1.60 mg/dLCALCIUM 8.90 mg/dLeGFR >60 mL/min/1.73m 04/25/2015 6:20 AM WBC 12.6 RBC 4.54 HGB 13.90 g/dLHCT 39.40 %MCV 87.0 fLMCH 30.60 pgMCHC 35.30 g/dLRDW CV 13.10 %MPV 10.50 fLPLT 252 %NEUT 76.40 %%LYMP 15.20 %%MONO 7.90 %%EOS 0.30 %%BASO 0.20 %#NEUT 9.62 #LYMP 1.91 #MONO 0.99 #EOS 0.04 #BASO 0.02 GLUCOSE 126.0 mg/dLSODIUM 134.0 mmol/LPOTASSIUM 3.20 mmol/ LCHLORIDE 100.0 mmol/LCO2 23.0 mmol/LBUN 8.0 mg/dLCREATININE 0.70 mg/dLSGOT/AST 16.0 IU/LSGPT/ALT 24.0 IU/LALK PHOS 61.0 IU/LTOTAL PROTEIN 6.20 g/dLALBUMIN 4.0 g/dLTOTAL BILI 1.20 mg/dLCALCIUM 8.60 mg/dLeGFR >60 mL/min/1.73m 04/26/2015 6:20 AM WBC 9.6 RBC 4.60 HGB 14.30 g/dLHCT 39.40 %MCV 86.0 fLMCH 31.10 pgMCHC 36.30 g/dLRDW CV 13.0 %MPV 10.50 fLPLT 232 %NEUT 67.80 %%LYMP 22.20 %%MONO 9.10 %%EOS 0.70 %%BASO 0.20 %#NEUT 6.51 #LYMP 2.13 #MONO 0.87 #EOS 0.07 #BASO 0.02 GLUCOSE 115.0 mg/dLSODIUM 134.0 mmol/LPOTASSIUM 2.80 mmol/ LCHLORIDE 100.0 mmol/LCO2 22.0 mmol/LBUN 6.0 mg/dLCREATININE 0.70 mg/dLSGOT/AST 16.0 IU/LSGPT/ALT 28.0 IU/LALK PHOS 59.0 IU/LTOTAL PROTEIN 6.20 g/dLALBUMIN 4.0 g/dLTOTAL BILI 1.30 mg/dLCALCIUM 8.50 mg/dLeGFR >60 mL/min/1.73m 06/24/2015 1:20 PM WBC 13.0 RBC 4.82 HGB 14.90 g/dLHCT 41.20 %MCV 86.0 fLMCH 30.90 pgMCHC 36.20 g/dLRDW CV 11.80 %MPV 10.50 fLPLT 310 %NEUT 70.70 %%LYMP 19.20 %%MONO 9.10 %%EOS 0.30 %%BASO 0.30 %#NEUT 9.20 #LYMP 2.49 #MONO 1.18 #EOS 0.04 #BASO 0.04 AMYLASE 33 IU/LC REACTIVE PROTEIN <0.5 mg/LGLUCOSE 118.0 mg/ dLSODIUM 137.0 mmol/LPOTASSIUM 3.0 mmol/LCHLORIDE 99.0 mmol/LCO2 27.0 mmol/LBUN 13.0 mg/dLCREATININE 0.70 mg/dLSGOT/AST 11.0 IU/LSGPT/ALT 17.0 IU/LALK PHOS 61.0 IU/LTOTAL PROTEIN 6.60 g/dLALBUMIN 4.30 g/dLTOTAL BILI 1.0 mg/dLCALCIUM 9.10 mg/dLeGFR >60 mL/min/1.73m 06/25/2015 6:00 AM WBC 11.3 RBC 4.65 HGB 14.30 g/dLHCT 39.10 %MCV 84.0 fLMCH 30.80 pgMCHC 36.60 g/dLRDW CV 11.60 %MPV 11.0 fLPLT 265 %NEUT 66.70 %%LYMP 22.50 %%MONO 9.10 %%EOS 0.90 %%BASO 0.40 %#NEUT 7.51 #LYMP 2.53 #MONO 1.02 #EOS 0.10 #BASO 0.05 GLUCOSE 133.0 mg/dLSODIUM 134.0 mmol/LPOTASSIUM 2.70 mmol/ LCHLORIDE 99.0 mmol/LCO2 25.0 mmol/LBUN 13.0 mg/dLCREATININE 0.80 mg/dLSGOT/AST 12.0 IU/LSGPT/ALT 15.0 IU/LALK PHOS 57.0 IU/LTOTAL PROTEIN 6.10 g/dLALBUMIN 3.90 g/dLTOTAL BILI 1.10 mg/dLCALCIUM 8.80 mg/dLeGFR >60 mL/min/1.73m 06/26/2015 5:55 AM GLUCOSE 124.0 mg/dLSODIUM 133.0 mmol/LPOTASSIUM 3.0 mmol/ LCHLORIDE 99.0 mmol/LCO2 24.0 mmol/LBUN 9.0 mg/dLCREATININE 0.70 mg/dLCALCIUM 8.60 mg/dLeGFR >60 mL/min/1.73m History Of Immunizations Not available. History of Past Illness Name Date of Onset Comments IUD Check/Removal Jul 20 2009 2:12PM Tinea Corporis Nov 03 2009 11:10AM Dizziness Nov 03 2009 11:10AM Seasonal Allergies Nov 03 2009 11:10AM IUD Check/Removal Nov 27 2009 10:20AM Wart Nov 27 2009 10:20AM Pharyngitis, Acute Jan 04 2010 11:27AM Lesion, Skin Jan 04 2010 11:27AM Dental caries, unspecified Jan 04 2010 11:27AM Herpes simplex; without mention of complication Jan 07 2010 9:30AM test confirmed positive Feb 15 2010 1:37PM Nausea Feb 24 2010 2:04PM Vomiting Feb 24 2010 2:04PM Nausea Feb 25 2010 9:52AM Vomiting Feb 25 2010 9:52AM Nausea Mar 01 2010 11:28AM Vomiting Mar 01 2010 11:28AM Nausea With Vomiting Mar 05 2010 8:56AM , Undelivered Mar 05 2010 8:56AM Abdominal Pain, RUQ Nausea & vomiting Back pain Helicobacter Pylori (H. Pylori) Infection , Other Normal Apr 22 2010 12:39PM Hypokalemia Apr 22 2010 12:39PM Hematuria, unspecified Apr 29 2010 2:09PM , Other Normal May 21 2010 11:48AM , Other Normal Jun 21 2010 10:24AM Vomiting Jun 21 2010 10:24AM Dysuria Jul 28 2010 10:40AM , Other Normal Jul 28 2010 10:40AM Group B Strep Screening, Sep 29 2010 3:30PM , Other Normal Sep 29 2010 3:30PM Hyperemesis Gravidarum, Severe/Antepartum Sep 29 2010 3:21PM Obesity complicating Sep 29 2010 3:21PM Contraceptive Counseling Dec 29 2010 11:24AM Special investigations and examinations; examination or test; examination or test, negative result Jan 17 2011 10:14AM IUD insertion Jan 17 2011 10:00AM Back Pain Feb 15 2011 10:29AM Sprain/Strain Feb 15 2011 10:29AM Coccyx pain Mar 22 2011 10:18AM Allergic dermatitis Jul 16 2012 11:28AM Thoracic Spine Pain Jun 13 2013 3:04PM Upper Respiratory Infection Jul 25 2013 1:50PM Nausea and vomiting Aug 01 2014 9:29AM Abdominal Pain Aug 05 2014 10:02AM Nausea and Vomiting Aug 05 2014 10:02AM Biliary Dyskinesia Aug 05 2014 10:02AM Helicobacter Pylori (H. Pylori) Infection Sep 03 2014 2:31PM Acute gastritis Sep 03 2014 2:31PM Abdominal Pain Dec 11 2014 9:29AM Vomiting Dec 11 2014 9:29AM Diarrhea Dec 11 2014 9:29AM Hypertension Jan 22 2015 9:10AM Acute pharyngitis, unspecified pharyngitis type Jan 22 2015 9:10AM Tooth infection Jan 22 2015 9:10AM Acute URI Mar 24 2015 2:52PM Dental infection Mar 24 2015 2:52PM Viral Gastroenteritis Jun 24 2015 10:52AM Dehydration, moderate Jun 24 2015 10:52AM Allergic contact dermatitis, unspecified trigger Sep 18 2015 11:17AM Payers Insurance Name Company Name Plan Name Plan Number Policy Number Policy Group Number Start Date zzzTest Medicare A Test Medicare A [id number] N/A [place] [facility] Medical Assistance Prog [id number] N/A [facility] [place] [facility] [id number] May [facility] [id number] N/A [facility] [id number] N/A History of Encounters Visit Date Visit Type Provider 09/18/2015 Office visit Rohan Marlow LAND APPRAISER 06/25/2015 [facility] Adelso Ross MD 06/24/2015 Office visit Adelso Ross MD 04/24/2015 Hospital Adelso Ross MD 03/24/2015 Office visit Alexandra Tejeda LAND APPRAISER 02/18/2015 Voided Olga Chavez LAND APPRAISER 01/22/2015 Office visit Alexandra Tejeda LAND APPRAISER 12/16/2014 Hospital Adelso Ross MD 12/15/2014 Hospital Adelso Ross MD 12/11/2014 Office visit Alexandra Tejeda LAND APPRAISER 09/03/2014 Office visit Adelso Ross MD 08/24/2014 Hospital Adelso Ross MD 08/15/2014 [facility] Adelso Ross MD 08/09/2014 [facility] Adelso Ross MD 08/06/2014 [facility] Adelso Ross MD 08/05/2014 Office visit 08/05/2014 Office visit 08/05/2014 Office visit Adelso Ross MD 08/01/2014 Office visit Olga Chavez LAND APPRAISER 07/31/2014 [facility] Tea Benitez MD 07/30/2014 [facility] Tea Benitez MD 07/22/2014 [facility] Tea Benitez MD 07/21/2014 [facility] Tea Benitez MD 07/25/2013 Office visit Rohan Marlow LAND APPRAISER 06/13/2013 Office visit Rohan Marlow LAND APPRAISER 07/16/2012 Office visit Olga Chavez LAND APPRAISER 03/22/2011 Office visit Alexandra Tejeda LAND APPRAISER 02/15/2011 Office visit Alexandra Tejeda LAND APPRAISER 01/17/2011 Office visit Johnathan Fitzpatrick MD 12/29/2010 Office visit Johnathan Fitzpatrick MD 10/11/2010 [facility] Johnathan Fitzpatrick MD 10/07/2010 Office visit Johnathan Fitzpatrick MD 09/29/2010 Office visit Johnathan Fitzpatrick MD 2010 [facility] Johnathan Fitzpatrick MD 07/28/2010 Office visit Lowell Quinteros MD 06/21/2010 Office visit Lowell Quinteros MD 05/21/2010 Office visit Lowell Quinteros MD 04/29/2010 Office visit Lowell Quinteros MD 04/22/2010 Office visit Lowell Quinteros MD 03/05/2010 Office visit Lowell Quinteros MD 03/01/2010 Nurse visit Lowell Quinteros MD 02/26/2010 Voided Lwoell Quinteros MD 02/25/2010 Nurse visit Lowell Quinteros MD 02/24/2010 Nurse visit Lowell Quinteros MD 02/15/2010 Office visit Tiki RAYMOND 01/07/2010 Office visit Tiki RAYMOND 01/04/2010 Office visit Tiki RAYMOND 11/27/2009 Office visit Lowell Quinteros MD 11/03/2009 Office visit Tiki RAYMOND 07/20/2009 Office visit Kylie Desouza MD
--- OUTSIDE RECORDS SUMMARY | 2017-09-16 11:29 | XMS REPORT ---
Author Author Alexandra Tejeda [facility] Address [address] [place], [place] [id number] Care Team Providers Care Bladder Blower Name Role Phone Alexandra Tejeda PCP Unavailable Allergies and Adverse Reactions Name Reaction Notes PENICILLINS unknown mother told her as a child Plan of Treatment Not available. Medications Active Name Start Date Estimated Completion Date SIG Comments Carafate 1 gram oral tablet 12/11/2014 03/11/2015 take 1 tablet by oral route 3 times a day for 30 days Nexium 40 mg oral capsule,delayed release(DR/EC) 12/11/2014 03/11/2015 take 1 capsule by oral route daily for 30 days in the AM lisinopril-hydrochlorothiazide 20-12.5 mg oral tablet 01/22/2015 take 1 tablet by oral route once daily amoxicillin 500 mg oral tablet 01/22/2015 01/29/2015 take 2 tablets by oral route 2 times a day for 7 days tramadol 50 mg oral tablet 01/22/2015 take 1 tablet (50 mg) by oral route every 6 hours as needed Name Start Date Expiration [...] 3 times per day for 14 days Discontinued Name Start Date Discontinued Date [...] 2 times per day for 14 days Problem List Description Status Onset Abdominal Pain, RUQ Active Nausea & vomiting Active Back pain Active Vital Signs Date Time BP-Sys(mm[Hg] BP-Tiffany(mm[Hg]) HR(bpm) RR(rpm) Temp WT HT HC BMI BSA BMI Percentile O2 Sat(%) 01/22/2015 9:08:00 AM 140 mmHg 80 mmHg [...] lbs Social History Name Description 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 Alcohol Use Tobacco Never smoker History of Procedures Date Ordered Description Order Status 12/11/2014 12:00 AM COMPLETE CBC W/AUTO DIFF WBC Returned 12/11/2014 12:00 AM COMPREHEN METABOLIC PANEL Returned 12/11/2014 12:00 AM HELICOBACTER PYLORI ANTIBODY Returned 01/17/2011 12:00 AM URINE TEST Reviewed 01/17/2011 12:00 AM INSERT INTRAUTERINE DEVICE Reviewed 01/17/2011 12:00 AM Mirena Reviewed 03/22/2011 12:00 AM X-RAY EXAM SACRUM TAILBONE Reviewed 07/16/2012 12:00 AM Depo-Medrol 80 mg ND#[id number] Reviewed 07/16/2012 12:00 AM Decadron 4 mg [facility]#[id number] Reviewed 07/16/2012 12:00 AM THER/PROPH/DIAG INJ SC/IM [...] 5.01 HGB 15.40 g/dLHCT 42.20 %MCV 84.0 fLMCH 30.70 pgMCHC 36.50 g/dLRDW CV 13.0 %MPV 10.10 fLPLT [...] 4.54 HGB 14.0 g/dLHCT 38.50 %MCV 85.0 fLMCH 30.80 pgMCHC 36.40 g/dLRDW CV 13.10 %MPV [...] BILI 1.60 mg/dLCALCIUM 8.90 mg/dLeGFR >60 mL/min/1.73m History Of Immunizations Not [...] 9:10AM Tooth infection Jan 22 2015 9:10AM Payers Insurance Name Company Name Plan Name Plan Number Policy Number Policy Group Number Start Date [facility] [id number] N/A [facility] [id number] N/A [employer] [id number] N/A [facility] [place] [facility] [id number] [facility] [id number] N/A History of Encounters Visit Date Visit Type Provider 01/22/2015 Office visit Alexandra Tejeda COLLEGE INTERN 12/16/2014 [facility] Adelso Ross MD 12/11/2014 Office visit Alexandra Tejeda COLLEGE INTERN 09/03/2014 Office visit Adelso Ross MD 08/24/2014 [facility] Adelso Ross MD 08/15/2014 [facility] Adelso Ross MD 08/09/2014 [facility] Adelso Ross MD 08/06/2014 Hospital Adelso Ross MD 08/05/2014 Office visit Adelso Ross MD 08/01/2014 Office visit Olga Chavez COLLEGE INTERN 07/31/2014 [facility] Tea Benitez MD 07/30/2014 [facility] Tea Benitez MD 07/22/2014 [facility] Tea Benitez MD 07/21/2014 [facility] Tea Benitez MD 07/25/2013 Office visit Rohan Marlow COLLEGE INTERN 06/13/2013 Office visit Rohan Marlow COLLEGE INTERN 07/16/2012 Office visit Olga Chavez COLLEGE INTERN 03/22/2011 Office visit Alexandra Tejeda COLLEGE INTERN 02/15/2011 Office visit Alexandra Tejeda COLLEGE INTERN 01/17/2011 Office visit Johnathan Fitzpatrick MD 12/29/2010 Office visit Johnathan Fitzpatrick MD 10/11/2010 Hospital Johnathan Fitzpatrick MD 10/07/2010 Office visit Johnathan Fitzpatrick MD 09/29/2010 Office visit Johnathan Fitzpatrick MD 2010 [facility] Johnathan Fitzpatrick MD 07/28/2010 Office visit Lowell Quinteros MD 06/21/2010 Office visit Lowell Quinteros MD 05/21/2010 Office visit Lowell Quinteros MD 04/29/2010 Office visit Lowell Quinteros MD 04/22/2010 Office visit Lowell Quinteros MD 03/05/2010 Office visit Lowell Quinteros MD 03/01/2010 Nurse visit Lowell Quinteros MD 02/26/2010 Voided Lowell Quinteros MD 02/25/2010 Nurse visit Lowell Quinteros MD 02/24/2010 Nurse visit Lowell Quinteros MD 02/15/2010 Office visit Tiki RAYMOND 01/07/2010 Office visit Tiki RAYMOND 01/04/2010 Office visit Tiki RAYMOND 11/27/2009 Office visit Lowell Quinteros MD 11/03/2009 Office visit Tiki RAYMOND 07/20/2009 Office visit Kylie Desouza MD
--- OUTSIDE RECORDS SUMMARY | 2017-09-16 11:31 | XMS REPORT ---
Author Author Emilia Echeverria [facility] Address [address] [place], [place] [id number] Care Team Providers Care Bread Wrapper Name Role Phone Emilia Echeverria PCP Unavailable Olga Chavez PreferredProvider Unavailable Allergies and Adverse Reactions Name Reaction Notes No known allergies Plan of Treatment Not available. Medications Active Name Start Date Estimated Completion Date SIG Comments metoclopramide HCl 10 mg oral tablet 02/22/2016 08/20/2016 take 1 tablet (10 mg ) by oral route 4 times per day 30 minutes before meals and at bedtime for 30 days promethazine 25 mg oral tablet 02/22/2016 take 1 tablet (25 mg) by oral route every 4-6 hours as needed Protonix 40 mg oral tablet,delayed release (DR/EC) 02/22/2016 08/20/2016 take 1 tablet (40 mg) by oral route once daily for 30 days Name Start Date Expiration Date SIG Comments [...] 2 times per day for 14 days lisinopril-hydrochlorothiazide 20-12.5 mg oral tablet 01/22/2015 03/01/2016 take 1 tablet by oral route once daily tramadol 50 mg oral tablet 01/22/2015 03/24/2015 take 1 tablet (50 mg) by oral route every 6 hours as needed Zofran (as hydrochloride) 4 mg oral tablet 03/01/2016 take 1 tablet by oral route Q4-6H PRN Problem List Description Status Onset Abdominal Pain, RUQ Active Nausea & vomiting Active Back pain Active Vital Signs Date Time BP-Sys(mm[Hg] BP-Tiffany(mm[Hg]) HR(bpm) RR(rpm) Temp WT HT HC BMI BSA BMI Percentile O2 Sat(%) 03/01/2016 9:42:00 AM 156 mmHg 85 mmHg 80 bpm 18 rpm 98.2 F 234 lbs 65 in 38.94 kg/m2 2.21 m2 02/22/2016 11:36:00 AM 158 mmHg 100 mmHg 89 bpm 20 rpm 95.5 F 224 lbs 65 in 37.2752 kg/m 2.1586 m 98 % 09/18/2015 11:14:00 AM 130 mmHg 72 mmHg [...] lbs 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 Alcohol Use Tobacco Never smoker History of Procedures Date Ordered Description Order Status 12/11/2014 12:00 AM COMPLETE CBC W/AUTO DIFF WBC Reviewed 12/11/2014 12:00 AM COMPREHEN METABOLIC PANEL Reviewed 12/11/2014 12:00 AM HELICOBACTER PYLORI ANTIBODY Reviewed 01/17/2011 12:00 AM URINE TEST Reviewed 01/17/2011 12:00 AM INSERT INTRAUTERINE DEVICE Reviewed 01/17/2011 12:00 AM Mirena Reviewed 03/22/2011 12:00 AM X-RAY EXAM SACRUM TAILBONE Reviewed 09/18/2015 12:00 AM Decadron, Per 1 Mg NDC# [address]-64 Reviewed 09/18/2015 12:00 AM Depo-Medrol, Per 80 Mg NDC#[address]-20 Reviewed 03/01/2016 12:00 AM REMOVE INTRAUTERINE DEVICE Reviewed 02/22/2016 12:00 AM COMPLETE CBC W/AUTO DIFF WBC Returned 02/22/2016 12:00 AM COMPREHEN METABOLIC PANEL Returned 07/16/2012 12:00 AM Depo-Medrol 80 mg NDC#[id number] Reviewed 07/16/2012 12:00 AM Decadron 4 mg NDC#[id number] Reviewed 07/16/2012 12:00 AM THER/PROPH/DIAG INJ SC/IM [...] Reviewed 08/05/2014 12:00 AM COMPREHEN METABOLIC PANEL Reviewed 08/05/2014 12:00 AM COMPLETE CBC W/AUTO DIFF WBC Reviewed 09/29/2010 12:00 AM CULTURE OTHR SPECIMN AEROBIC [...] g/dLALBUMIN 4.0 g/dLTOTAL BILI 0.70 mg/dLCALCIUM 9.20 mg/dLAGE 24 GFR NonAA 90 GFR AA 109 eGFR >60 mL/min/1.73 m2eGFR AA* >60 WBC 8.4 RBC 4.84 HGB 14.70 g/dLHCT 41.10 % MCV 85.0 fLMCH 30.40 pgMCHC 35.80 g/dLRDW SD 39 RDW CV 12.50 %MPV 10.90 fLPLT 278 NRBC# 0.00 NRBC% 0.0 %NEUT 61.30 %%LYMP 26.90 %%MONO 8.30 %%EOS 3.0 %%BASO 0.50 %#NEUT 5.18 #LYMP 2.27 #MONO 0.70 #EOS 0.25 #BASO 0.04 MANUAL DIFF NOT IND 03/05/2010 10:05 AM COLOR YELLOW APPEARANCE CLOUDY SPEC GRAV 1.015 pH 7.0 PROTEIN NEGATIVE GLUCOSE NEGATIVE KETONE >=80 BILIRUBIN NEGATIVE BLOOD NEGATIVE NITRITE NEGATIVE LEUK SCREEN NEGATIVE WBC/HPF RARE RBC/HPF NEGATIVE CASTS/LPF NEGATIVE CRYSTALS 2++ AMORPHOUS MUCOUS THRDS NEGATIVE BACTERIA 1+ EPITH CELLS 3+ ++ SQUAMOUS TRICHOMONAS NEGATIVE YEAST NEGATIVE CULT SET UP? NO WBC 14.3 RBC 4.93 HGB 15.10 g/dLHCT 41.40 %MCV 84.0 fLMCH 30.60 pgMCHC 36.50 g/dLRDW SD 38 RDW CV 12.70 %MPV 10.40 fLPLT 270 NRBC# 0.00 NRBC% 0.0 %NEUT 77.70 %%LYMP 15.20 %%MONO 6.60 %%EOS 0.30 %%BASO 0.20 %#NEUT 11.13 #LYMP 2.17 #MONO 0.95 #EOS 0.04 #BASO 0.03 MANUAL DIFF SEE BELOW SEGS 81 BANDS 2 LYMPHS 13 MONOS 4 GLUCOSE 108.0 mg/dLSODIUM 131.0 mmol/LPOTASSIUM 3.60 mmol/LCHLORIDE 99.0 mmol/LCO2 19.0 mmol/LBUN 7.0 mg/dLCREATININE 0.70 mg/dLCALCIUM 9.70 mg/dLAGE 24 GFR NonAA 105 GFR AA 127 eGFR >60 mL/min/1.73 m2eGFR AA* >60 03/06/2010 6:45 AM ACETONE NEGATIVE TSH 0.370 uIU/mLWBC 12.5 RBC 4.51 HGB 13.90 g/dLHCT 37.90 %MCV 84.0 fLMCH 30.80 pgMCHC 36.70 g/dLRDW SD 39 RDW CV 12.70 %MPV 10.20 fLPLT 235 NRBC# 0.00 NRBC% 0.0 %NEUT 78.80 %%LYMP 13.10 %%MONO 7.50 %%EOS 0.40 %%BASO 0.20 %#NEUT 9.84 #LYMP 1.64 #MONO 0.93 #EOS 0.05 #BASO 0.02 MANUAL DIFF NOT IND GLUCOSE 108.0 mg/dLSODIUM 130.0 mmol/LPOTASSIUM 3.10 mmol/LCHLORIDE 103.0 mmol/LCO2 19.0 mmol/LBUN 5.0 mg/dLCREATININE 0.60 mg/ dLCALCIUM 8.40 mg/dLAGE 24 GFR NonAA 125 GFR AA 152 eGFR >60 mL/min/1.73 m2eGFR AA* >60 03/06/2010 12:10 PM SMALL 03/07/2010 7:00 AM WBC 11.5 RBC 4.49 HGB 13.80 g/dLHCT 37.50 %MCV 84.0 fLMCH 30.70 pgMCHC 36.80 g/dLRDW SD 39 RDW CV 12.80 %MPV 10.10 fLPLT 220 NRBC# 0.00 NRBC% 0.0 %NEUT 75.90 %%LYMP 14.50 %%MONO 8.90 %%EOS 0.40 %%BASO 0.30 %#NEUT 8.73 #LYMP 1.67 #MONO 1.03 #EOS 0.05 #BASO 0.03 MANUAL DIFF SEE BELOW SEGS 63 BANDS 8 LYMPHS 26 MONOS 3 GLUCOSE 102.0 mg/dLSODIUM 130.0 mmol/LPOTASSIUM 3.50 mmol/LCHLORIDE 101.0 mmol/LCO2 19.0 mmol/LBUN 4.0 mg/dLCREATININE 0.50 mg/ dLCALCIUM 8.90 mg/dLAGE 24 GFR NonAA 154 GFR AA 187 eGFR >60 mL/min/1.73 m2eGFR AA* >60 03/07/2010 4:21 PM COLOR YELLOW APPEARANCE CLEAR SPEC GRAV <=1.005 pH 6.5 PROTEIN NEGATIVE GLUCOSE NEGATIVE KETONE 15 BILIRUBIN NEGATIVE BLOOD NEGATIVE NITRITE NEGATIVE LEUK SCREEN NEGATIVE WBC/HPF NEGATIVE RBC/HPF NEGATIVE CASTS/ LPF NEGATIVE CRYSTALS NEGATIVE MUCOUS THRDS NEGATIVE BACTERIA NEGATIVE EPITH CELLS 1+ SQUAMOUS TRICHOMONAS NEGATIVE YEAST NEGATIVE CULT SET UP? NO 03/08/2010 5:30 AM WBC 15.0 %MONO 9.0 %%EOS 0.80 %%BASO 0.20 %BANDS 8 LYMPHS 11 MONOS 3 #NEUT 11.07 #LYMP 2.38 #MONO 1.35 #EOS 0.12 #BASO 0.03 MANUAL DIFF SEE BELOW SEGS 78 RBC 5.01 HGB 15.40 g/dLHCT 42.20 %MCV 84.0 fLMCH 30.70 pgMCHC 36.50 g/dLRDW SD 39 RDW CV 13.0 %MPV 10.10 fLPLT 242 NRBC# 0.00 NRBC% 0.0 %NEUT 74.10 %%LYMP 15.90 %GLUCOSE 102.0 mg/dLSODIUM 129.0 mmol/LPOTASSIUM 3.40 mmol/ LCHLORIDE 98.0 mmol/LCO2 23.0 mmol/LBUN 5.0 mg/dLCREATININE 0.60 mg/dLCALCIUM 9.40 mg/dLAGE 24 GFR NonAA 125 GFR AA 152 eGFR >60 mL/min/1.73 m2eGFR AA* >60 04/10/2010 6:00 PM SMALL 04/11/2010 6:25 AM GLUCOSE 121.0 mg/dLSODIUM 132.0 mmol/LPOTASSIUM 3.70 mmol/ LCHLORIDE 104.0 mmol/LCO2 16.0 mmol/LBUN 4.0 mg/dLCREATININE 0.50 mg/dLSGOT/AST 18.0 IU/LSGPT/ALT 16.0 IU/LALK PHOS 73.0 IU/LTOTAL PROTEIN 6.0 g/dLALBUMIN 3.30 g/dLTOTAL BILI 0.70 mg/dLCALCIUM 9.0 mg/dLAGE 24 GFR NonAA 154 GFR AA 187 eGFR > 60 mL/min/1.73 m2eGFR AA* >60 04/11/2010 9:15 AM WBC 12.4 RBC 4.11 HGB 12.70 g/dLHCT 35.20 %MCV 86.0 fLMCH 30.90 pgMCHC 36.10 g/dLRDW SD 43 RDW CV 13.90 %MPV 9.90 fLPLT 222 NRBC# 0.00 NRBC% 0.0 %NEUT 81.90 %%LYMP 12.10 %%MONO 5.60 %%EOS 0.20 %%BASO 0.20 %#NEUT 10.18 #LYMP 1.51 #MONO 0.69 #EOS 0.03 #BASO 0.02 MANUAL DIFF NOT IND 04/22/2010 12:30 PM RUBELLA 83.0 IU/mLGLUCOSE 107.0 mg/dLSODIUM 137.0 mmol/ LPOTASSIUM 3.20 mmol/LCHLORIDE 102.0 mmol/LCO2 24.0 mmol/LBUN 4.0 mg/ dLCREATININE 0.50 mg/dLCALCIUM 9.0 mg/dLAGE 24 GFR NonAA 154 GFR AA 187 eGFR > 60 mL/min/1.73 m2eGFR AA* >60 WBC 11.2 RBC 4.12 HGB 12.50 g/dLHCT 35.50 %MCV 86.0 fLMCH 30.30 pgMCHC 35.20 g/dLRDW SD 44 RDW CV 14.20 %MPV 11.10 fLPLT 241 NRBC# 0.00 NRBC% 0.0 %NEUT 76.60 %%LYMP 15.90 %%MONO 6.40 %%EOS 0.90 %%BASO 0.20 %#NEUT 8.57 #LYMP 1.78 #MONO 0.72 #EOS 0.10 #BASO 0.02 MANUAL DIFF NOT IND 04/29/2010 2:53 PM SMALL COLOR YELLOW APPEARANCE CLOUDY SPEC GRAV 1.020 pH 7.0 PROTEIN 30 GLUCOSE 100 KETONE TRACE BILIRUBIN NEGATIVE BLOOD NEGATIVE NITRITE POSITIVE LEUK SCREEN SMALL WBC/HPF 5-10 RBC/HPF NEGATIVE CASTS/LPF NEGATIVE CRYSTALS 1+ CALCIUM OX MUCOUS THRDS NEGATIVE BACTERIA 2++ EPITH CELLS 4 ++++SQUAMOUS TRICHOMONAS NEGATIVE YEAST NEGATIVE CULT SET UP? YES 05/21/2010 11:50 AM COLOR YELLOW APPEARANCE CLOUDY SPEC GRAV 1.020 pH 7.5 PROTEIN TRACE GLUCOSE NEGATIVE KETONE NEGATIVE BILIRUBIN NEGATIVE BLOOD NEGATIVE NITRITE NEGATIVE LEUK SCREEN NEGATIVE WBC/HPF NEGATIVE RBC/HPF 0-5 CASTS/LPF NEGATIVE CRYSTALS 2++ AMORPHOUS MUCOUS THRDS NEGATIVE BACTERIA NEGATIVE EPITH CELLS FEW SQUAMOUS TRICHOMONAS NEGATIVE YEAST NEGATIVE CULT SET UP? NO 07/28/2010 12:21 PM COLOR YELLOW APPEARANCE CLEAR SPEC GRAV 1.020 pH 6.5 PROTEIN 30 GLUCOSE NEGATIVE KETONE NEGATIVE BILIRUBIN NEGATIVE BLOOD NEGATIVE NITRITE NEGATIVE LEUK SCREEN NEGATIVE WBC/HPF 0-5 RBC/HPF NEGATIVE CASTS/LPF NEGATIVE CRYSTALS NEGATIVE MUCOUS THRDS 1+ BACTERIA 1+ EPITH CELLS 1+ SQUAMOUS TRICHOMONAS NEGATIVE YEAST NEGATIVE CULT SET UP? NO 09/05/2010 4:20 AM GLUCOSE 125.0 mg/dLSODIUM 136.0 mmol/LPOTASSIUM 3.20 mmol/ LCHLORIDE 103.0 mmol/LCO2 22.0 mmol/LBUN 4.0 mg/dLCREATININE 0.50 mg/dLSGOT/AST 10.0 IU/LSGPT/ALT 9.0 IU/LALK PHOS 64.0 IU/LTOTAL PROTEIN 5.70 g/dLALBUMIN 3.20 g/dLTOTAL BILI 1.0 mg/dLCALCIUM 8.80 mg/dLAGE 25 GFR NonAA 153 GFR AA 185 eGFR > 60 mL/min/1.73 m2eGFR AA* >60 WBC 9.4 RBC 4.00 HGB 12.60 g/dLHCT 36.20 %MCV 91.0 fLMCH 31.50 pgMCHC 34.80 g/dLRDW SD 45 RDW CV 13.60 %MPV 10.80 fLPLT 174 NRBC# 0.00 NRBC% 0.0 %NEUT 73.40 %%LYMP 17.80 %%MONO 8.0 %%EOS 0.50 %%BASO 0.30 %#NEUT 6.89 #LYMP 1.67 #MONO 0.75 #EOS 0.05 #BASO 0.03 MANUAL DIFF NOT IND 09/29/2010 9:27 AM No 09/29/2010 5:05 PM WBC 11.0 RBC 3.71 HGB 12.0 g/dLHCT 33.60 %MCV 91.0 fLMCH 32.30 pgMCHC 35.70 g/dLRDW SD 45 RDW CV 13.40 %MPV 11.0 fLPLT 201 NRBC# 0.00 NRBC% 0.0 %NEUT 72.90 %%LYMP 17.90 %%MONO 8.40 %%EOS 0.70 %%BASO 0.10 %#NEUT 8.01 #LYMP 1.96 #MONO 0.92 #EOS 0.08 #BASO 0.01 MANUAL DIFF NOT IND 10/11/2010 7:53 AM WBC 8.3 RBC 3.84 HGB 12.50 g/dLHCT 35.20 %MCV 92.0 fLMCH 32.60 pgMCHC 35.50 g/dLRDW SD 45 RDW CV 13.50 %MPV 10.50 fLPLT 178 NRBC# 0.00 NRBC% 0.0 %NEUT 67.20 %%LYMP 22.70 %%MONO 8.30 %%EOS 1.40 %%BASO 0.40 %#NEUT 5.61 #LYMP 1.89 #MONO 0.69 #EOS 0.12 #BASO 0.03 MANUAL DIFF NOT IND 08/05/2014 11:36 AM WBC 8.2 RBC 4.54 HGB 14.0 g/dLHCT 38.50 %MCV 85.0 fLMCH 30.80 pgMCHC 36.40 g/dLRDW SD 40 RDW CV 13.10 %MPV 10.80 fLPLT 269 NRBC# 0.00 NRBC% 0.0 %NEUT 58.70 %%LYMP 28.70 %%MONO 8.20 %%EOS 4.0 %%BASO 0.40 %#NEUT 4.82 #LYMP 2.35 #MONO 0.67 #EOS 0.33 #BASO 0.03 MANUAL DIFF NOT IND GLUCOSE 105.0 mg/dLSODIUM 141.0 mmol/LPOTASSIUM 3.30 mmol/LCHLORIDE 101.0 mmol/LCO2 24.0 mmol/LBUN 5.0 mg/dLCREATININE 0.80 mg/dLSGOT/AST 27.0 IU/LSGPT/ALT 51.0 IU/ LALK PHOS 60.0 IU/LTOTAL PROTEIN 6.10 g/dLALBUMIN 4.0 g/dLTOTAL BILI 1.40 mg/ dLCALCIUM 9.60 mg/dLAGE 28 GFR NonAA 87 GFR AA 105 eGFR >60 mL/min/1.73 m2eGFR AA* >60 08/06/2014 6:40 AM TEST UR NEGATIVE 08/10/2014 11:10 AM LIPASE 9.0 U/LAMYLASE 28 IU/LGLUCOSE 104.0 mg/dLSODIUM 140.0 mmol/LPOTASSIUM 3.10 mmol/LCHLORIDE 101.0 mmol/LCO2 25.0 mmol/LBUN 11.0 mg /dLCREATININE 0.80 mg/dLCALCIUM 9.30 mg/dLAGE 28 GFR NonAA 87 GFR AA 105 eGFR > 60 mL/min/1.73 m2eGFR AA* >60 SGOT/AST 25.0 IU/LSGPT/ALT 82.0 IU/LALK PHOS 102.0 IU/LTOTAL PROTEIN 6.20 g/dLALBUMIN 3.90 g/dLTOTAL BILI 2.10 mg/dLDIRECT BILI 0.60 mg/dLINDIRECT BILI 1.50 mg/dLWBC 9.6 RBC 4.48 HGB 13.90 g/dLHCT 38.40 %MCV 86.0 fLMCH 31.0 pgMCHC 36.20 g/dLRDW SD 41 RDW CV 13.30 %MPV 9.90 fLPLT 249 NRBC# 0.00 NRBC% 0.0 %NEUT 70.60 %%LYMP 18.10 %%MONO 8.70 %%EOS 2.30 %%BASO 0.30 %#NEUT 6.77 #LYMP 1.74 #MONO 0.83 #EOS 0.22 #BASO 0.03 MANUAL DIFF NOT IND 08/11/2014 6:20 AM SGOT/AST 19.0 IU/LSGPT/ALT 56.0 IU/LALK PHOS 89.0 IU/LTOTAL PROTEIN 5.80 g/dLALBUMIN 3.60 g/dLTOTAL BILI 1.50 mg/dLDIRECT BILI 0.40 mg/ dLINDIRECT BILI 1.10 mg/dLGLUCOSE 88.0 mg/dLSODIUM 136.0 mmol/LPOTASSIUM 3.20 mmol/LCHLORIDE 104.0 mmol/LCO2 21.0 mmol/LBUN 7.0 mg/dLCREATININE 0.70 mg/ dLCALCIUM 8.70 mg/dLAGE 28 GFR NonAA 101 GFR AA 122 eGFR >60 mL/min/1.73 m2eGFR AA* >60 WBC 8.0 RBC 4.59 HGB 14.10 g/dLHCT 38.90 %MCV 85.0 fLMCH 30.70 pgMCHC 36.20 g/dLRDW SD 40 RDW CV 13.20 %MPV 10.10 fLPLT 237 NRBC# 0.00 NRBC% 0.0 % NEUT 62.60 %%LYMP 26.40 %%MONO 7.60 %%EOS 3.10 %%BASO 0.30 %#NEUT 5.00 #LYMP 2.11 #MONO 0.61 #EOS 0.25 #BASO 0.02 MANUAL DIFF NOT IND 08/15/2014 8:15 AM TEST UR NEGATIVE 08/25/2014 6:10 AM GLUCOSE 108.0 mg/dLSODIUM 136.0 mmol/LPOTASSIUM 2.60 mmol/ LCHLORIDE 105.0 mmol/LCO2 23.0 mmol/LBUN 6.0 mg/dLCREATININE 0.70 mg/dLCALCIUM 8.10 mg/dLAGE 28 GFR NonAA 101 GFR AA 122 eGFR >60 mL/min/1.73 m2eGFR AA* >60 08/26/2014 6:32 AM GLUCOSE 118.0 mg/dLSODIUM 138.0 mmol/LPOTASSIUM 3.20 mmol/ LCHLORIDE 109.0 mmol/LCO2 23.0 mmol/LBUN 4.0 mg/dLCREATININE 0.70 mg/dLCALCIUM 8.10 mg/dLAGE 28 GFR NonAA 101 GFR AA 122 eGFR >60 mL/min/1.73 m2eGFR AA* >60 12/11/2014 10:00 AM WBC 7.8 RBC 4.52 HGB 13.80 g/dLHCT 38.60 %MCV 85.0 fLMCH 30.50 pgMCHC 35.80 g/dLRDW SD 39 RDW CV 12.60 %MPV 10.70 fLPLT 259 NRBC# 0.00 NRBC% 0.0 %NEUT 59.90 %%LYMP 29.50 %%MONO 7.40 %%EOS 2.80 %%BASO 0.40 %#NEUT 4.70 #LYMP 2.31 #MONO 0.58 #EOS 0.22 #BASO 0.03 MANUAL DIFF NOT IND GLUCOSE 92.0 mg/dLSODIUM 140.0 mmol/LPOTASSIUM 3.90 mmol/LCHLORIDE 107.0 mmol/LCO2 26.0 mmol/LBUN 12.0 mg/dLCREATININE 0.80 mg/dLSGOT/AST 14.0 IU/LSGPT/ALT 21.0 IU/ LALK PHOS 65.0 IU/LTOTAL PROTEIN 6.60 g/dLALBUMIN 4.10 g/dLTOTAL BILI 0.60 mg/ dLCALCIUM 9.20 mg/dLAGE 29 GFR NonAA 86 GFR AA 104 eGFR >60 mL/min/1.73meGFR AA* >60 H. pylori, IgG Abs 1.40 U/mLH. pylori, IgA Abs 3.7 UnitsH. pylori, IgM Abs 2.4 12/15/2014 2:00 PM C REACTIVE PROTEIN <0.5 mg/LWBC 11.3 RBC 5.13 HGB 15.90 g/ dLHCT 43.10 %MCV 84.0 fLMCH 31.0 pgMCHC 36.90 g/dLRDW SD 39 RDW CV 12.80 %MPV 10.30 fLPLT 302 NRBC# 0.00 NRBC% 0.0 %NEUT 65.60 %%LYMP 26.0 %%MONO 7.80 %%EOS 0.40 %%BASO 0.20 %#NEUT 7.38 #LYMP 2.93 #MONO 0.88 #EOS 0.05 #BASO 0.02 MANUAL DIFF NOT IND GLUCOSE 116.0 mg/dLSODIUM 135.0 mmol/LPOTASSIUM 3.10 mmol/ LCHLORIDE 99.0 mmol/LCO2 24.0 mmol/LBUN 9.0 mg/dLCREATININE 0.80 mg/dLSGOT/AST 14.0 IU/LSGPT/ALT 23.0 IU/LALK PHOS 58.0 IU/LTOTAL PROTEIN 7.50 g/dLALBUMIN 4.50 g/dLTOTAL BILI 1.50 mg/dLCALCIUM 9.90 mg/dLAGE 29 GFR NonAA 86 GFR AA 104 eGFR >60 mL/min/1.73meGFR AA* >60 12/15/2014 10:06 PM COLOR YELLOW APPEARANCE HAZY SPEC GRAV 1.015 pH 7.0 PROTEIN NEGATIVE GLUCOSE NEGATIVE mg/dLKETONE >=80 BILIRUBIN SMALL BLOOD NEGATIVE NITRITE NEGATIVE LEUK SCREEN NEGATIVE MICRO INDICATED? NOT INDICATED 12/16/2014 6:10 AM WBC 11.2 RBC 4.94 HGB 15.20 g/dLHCT 41.80 %MCV 85.0 fLMCH 30.80 pgMCHC 36.40 g/dLRDW SD 38 RDW CV 12.70 %MPV 10.40 fLPLT 296 NRBC# 0.00 NRBC% 0.0 %NEUT 66.0 %%LYMP 25.90 %%MONO 7.10 %%EOS 0.70 %%BASO 0.30 %#NEUT 7.38 #LYMP 2.90 #MONO 0.80 #EOS 0.08 #BASO 0.03 MANUAL DIFF NOT IND GLUCOSE 116.0 mg/dLSODIUM 134.0 mmol/LPOTASSIUM 3.10 mmol/LCHLORIDE 101.0 mmol/LCO2 24.0 mmol/LBUN 8.0 mg/dLCREATININE 0.80 mg/dLSGOT/AST 13.0 IU/LSGPT/ALT 22.0 IU/ LALK PHOS 61.0 IU/LTOTAL PROTEIN 6.80 g/dLALBUMIN 4.30 g/dLTOTAL BILI 1.60 mg/ dLCALCIUM 8.90 mg/dLAGE 29 GFR NonAA 86 GFR AA 104 eGFR >60 mL/min/1.73meGFR AA* >60 TEST NEGATIVE 04/25/2015 6:20 AM WBC 12.6 RBC 4.54 HGB 13.90 g/dLHCT 39.40 %MCV 87.0 fLMCH 30.60 pgMCHC 35.30 g/dLRDW SD 41 RDW CV 13.10 %MPV 10.50 fLPLT 252 NRBC# 0.00 NRBC% 0.0 %NEUT 76.40 %%LYMP 15.20 %%MONO 7.90 %%EOS 0.30 %%BASO 0.20 %#NEUT 9.62 #LYMP 1.91 #MONO 0.99 #EOS 0.04 #BASO 0.02 MANUAL DIFF NOT IND GLUCOSE 126.0 mg/dLSODIUM 134.0 mmol/LPOTASSIUM 3.20 mmol/LCHLORIDE 100.0 mmol/LCO2 23.0 mmol/LBUN 8.0 mg/dLCREATININE 0.70 mg/dLSGOT/AST 16.0 IU/LSGPT/ALT 24.0 IU/ LALK PHOS 61.0 IU/LTOTAL PROTEIN 6.20 g/dLALBUMIN 4.0 g/dLTOTAL BILI 1.20 mg/ dLCALCIUM 8.60 mg/dLAGE 29 GFR NonAA 100 GFR AA 121 eGFR >60 mL/min/1.73meGFR AA* >60 04/26/2015 6:20 AM WBC 9.6 RBC 4.60 HGB 14.30 g/dLHCT 39.40 %MCV 86.0 fLMCH 31.10 pgMCHC 36.30 g/dLRDW SD 40 RDW CV 13.0 %MPV 10.50 fLPLT 232 NRBC# 0.00 NRBC% 0.0 %NEUT 67.80 %%LYMP 22.20 %%MONO 9.10 %%EOS 0.70 %%BASO 0.20 %#NEUT 6.51 #LYMP 2.13 #MONO 0.87 #EOS 0.07 #BASO 0.02 MANUAL DIFF NOT IND GLUCOSE 115.0 mg/dLSODIUM 134.0 mmol/LPOTASSIUM 2.80 mmol/LCHLORIDE 100.0 mmol/LCO2 22.0 mmol/LBUN 6.0 mg/dLCREATININE 0.70 mg/dLSGOT/AST 16.0 IU/LSGPT/ALT 28.0 IU/ LALK PHOS 59.0 IU/LTOTAL PROTEIN 6.20 g/dLALBUMIN 4.0 g/dLTOTAL BILI 1.30 mg/ dLCALCIUM 8.50 mg/dLAGE 29 GFR NonAA 100 GFR AA 121 eGFR >60 mL/min/1.73meGFR AA* >60 06/24/2015 1:20 PM WBC 13.0 RBC 4.82 HGB 14.90 g/dLHCT 41.20 %MCV 86.0 fLMCH 30.90 pgMCHC 36.20 g/dLRDW SD 37 RDW CV 11.80 %MPV 10.50 fLPLT 310 NRBC# 0.00 NRBC% 0.0 %NEUT 70.70 %%LYMP 19.20 %%MONO 9.10 %%EOS 0.30 %%BASO 0.30 %#NEUT 9.20 #LYMP 2.49 #MONO 1.18 #EOS 0.04 #BASO 0.04 MANUAL DIFF NOT IND AMYLASE 33 IU/LC REACTIVE PROTEIN <0.5 mg/LGLUCOSE 118.0 mg/dLSODIUM 137.0 mmol/LPOTASSIUM 3.0 mmol/LCHLORIDE 99.0 mmol/LCO2 27.0 mmol/LBUN 13.0 mg/dLCREATININE 0.70 mg/ dLSGOT/AST 11.0 IU/LSGPT/ALT 17.0 IU/LALK PHOS 61.0 IU/LTOTAL PROTEIN 6.60 g/ dLALBUMIN 4.30 g/dLTOTAL BILI 1.0 mg/dLCALCIUM 9.10 mg/dLAGE 29 GFR NonAA 100 GFR AA 121 eGFR >60 mL/min/1.73meGFR AA* >60 06/25/2015 6:00 AM WBC 11.3 RBC 4.65 HGB 14.30 g/dLHCT 39.10 %MCV 84.0 fLMCH 30.80 pgMCHC 36.60 g/dLRDW SD 36 RDW CV 11.60 %MPV 11.0 fLPLT 265 NRBC# 0.00 NRBC% 0.0 %NEUT 66.70 %%LYMP 22.50 %%MONO 9.10 %%EOS 0.90 %%BASO 0.40 %#NEUT 7.51 #LYMP 2.53 #MONO 1.02 #EOS 0.10 #BASO 0.05 MANUAL DIFF NOT IND GLUCOSE 133.0 mg/dLSODIUM 134.0 mmol/LPOTASSIUM 2.70 mmol/LCHLORIDE 99.0 mmol/LCO2 25.0 mmol/LBUN 13.0 mg/dLCREATININE 0.80 mg/dLSGOT/AST 12.0 IU/LSGPT/ALT 15.0 IU/ LALK PHOS 57.0 IU/LTOTAL PROTEIN 6.10 g/dLALBUMIN 3.90 g/dLTOTAL BILI 1.10 mg/ dLCALCIUM 8.80 mg/dLAGE 29 GFR NonAA 86 GFR AA 104 eGFR >60 mL/min/1.73meGFR AA* >60 06/26/2015 5:55 AM GLUCOSE 124.0 mg/dLSODIUM 133.0 mmol/LPOTASSIUM 3.0 mmol/ LCHLORIDE 99.0 mmol/LCO2 24.0 mmol/LBUN 9.0 mg/dLCREATININE 0.70 mg/dLCALCIUM 8.60 mg/dLAGE 29 GFR NonAA 100 GFR AA 121 eGFR >60 mL/min/1.73meGFR AA* >60 02/19/2016 11:20 AM GLUCOSE 150.0 mg/dLSODIUM 130.0 mmol/LPOTASSIUM 2.70 mmol/ LCHLORIDE 88.0 mmol/LCO2 28.0 mmol/LBUN 18.0 mg/dLCREATININE 0.90 mg/dLSGOT/AST 17.0 IU/LSGPT/ALT 25.0 IU/LALK PHOS 72.0 IU/LTOTAL PROTEIN 8.40 g/dLALBUMIN 5.0 g/dLTOTAL BILI 2.60 mg/dLCALCIUM 9.50 mg/dLAGE 30 GFR NonAA 75 GFR AA 91 eGFR > 60 mL/min/1.73meGFR AA* >60 LIPASE 17.0 U/L 02/22/2016 12:12 PM GLUCOSE 139.0 mg/dLSODIUM 131.0 mmol/LPOTASSIUM 3.40 mmol/ LCHLORIDE 92.0 mmol/LCO2 26.0 mmol/LBUN 11.0 mg/dLCREATININE 0.90 mg/dLSGOT/AST 17.0 IU/LSGPT/ALT 26.0 IU/LALK PHOS 67.0 IU/LTOTAL PROTEIN 7.40 g/dLALBUMIN 4.80 g/dLTOTAL BILI 1.70 mg/dLCALCIUM 9.80 mg/dLAGE 30 GFR NonAA 75 GFR AA 91 eGFR >60 mL/min/1.73meGFR AA* >60 WBC 17.3 RBC 5.53 HGB 16.80 g/dLHCT 44.60 % MCV 81.0 fLMCH 30.40 pgMCHC 37.70 g/dLRDW SD 33 RDW CV 11.50 %MPV 10.40 fLPLT 384 NRBC# 0.00 NRBC% 0.0 %NEUT 71.90 %%LYMP 16.60 %%MONO 9.80 %%EOS 0.90 %%BASO 0.30 %#NEUT 12.42 #LYMP 2.86 #MONO 1.70 #EOS 0.15 #BASO 0.05 MANUAL DIFF NOT IND History Of Immunizations Not available. History of [...] dermatitis, unspecified trigger Sep 18 2015 11:17AM Hyponatremia Feb 22 2016 11:36AM Hypokalemia Feb 22 2016 11:36AM Vomiting Feb 22 2016 11:36AM Dehydration Feb 22 2016 11:36AM Encounter for IUD removal Mar 01 2016 4:02PM Payers Insurance Name Company Name Plan Name Plan Number Policy Number Policy Group Number Start Date zzzTest Medicare A Test Medicare A [id number] N/A [place] [employer] [facility] [place] [employer] [place] [id number] N/A [facility] [place] [facility] [id number] May [facility] [id number] N/A [facility] [id number] N/A History of Encounters Visit Date Visit Type Provider 03/01/2016 Office visit Emilia Echeverria SUB ARC OPERATOR 02/22/2016 Office visit Adelso Ross MD 09/18/2015 Office visit Rohan Marlow SUB ARC OPERATOR 06/25/2015 [facility] Adelso Ross MD 06/24/2015 Office visit Adelso Ross MD 04/24/2015 Hospital Adelso Ross MD 03/24/2015 Office visit Alexandra Tejeda SUB ARC OPERATOR 02/18/2015 Voided Olga Chavez SUB ARC OPERATOR 01/22/2015 Office visit Alexandra Tejeda SUB ARC OPERATOR 12/16/2014 [facility] Adelso Ross MD 12/15/2014 [facility] Adelso Ross MD 12/11/2014 Office visit Alxeandra Tejeda SUB ARC OPERATOR 09/03/2014 Office visit Adelso Ross MD 08/24/2014 Hospital Adelso Ross MD 08/15/2014 [facility] Adelso Ross MD 08/09/2014 [facility] Adelso Ross MD 08/06/2014 [facility] Adelso Ross MD 08/05/2014 Office visit 08/05/2014 Office visit 08/05/2014 Office visit Adelso Ross MD 08/01/2014 Office visit Olga Chavez SUB ARC OPERATOR 07/31/2014 [facility] Tea Benitez MD 07/30/2014 [facility] Tea Benitez MD 07/22/2014 [facility] Tea Benitez MD 07/21/2014 [facility] Tea Benitez MD 07/25/2013 Office visit Rohan Marlow SUB ARC OPERATOR 06/13/2013 Office visit Rohan Marlow SUB ARC OPERATOR 07/16/2012 Office visit Olga Chavez SUB ARC OPERATOR 03/22/2011 Office visit Alexandra Tejeda SUB ARC OPERATOR 02/15/2011 Office visit Alexandra Tejeda SUB ARC OPERATOR 01/17/2011 Office visit Johnathan Fitzpatrick MD 12/29/2010 Office visit Johnathan Fitzpatrick MD 10/11/2010 [facility] Johnathan Fitzpatrick MD 10/07/2010 Office visit Johnathan Fitzpatrick MD 09/29/2010 Office visit Johnathan Fitzpatrick MD 2010 [facility] Johnathan Fitzpatrick MD 07/28/2010 Office visit Lowell Quinteros MD 06/21/2010 Office visit Lowell Quinteros MD 05/21/2010 Office visit Lowell Quinteros MD 04/29/2010 Office visit Lowell Quinteros MD 04/22/2010 Office visit Lowell Quinteros MD 03/05/2010 Office visit Lowell Quinteros MD 03/01/2010 Nurse visit Lowell Quinteros MD 02/26/2010 Voided Lowell Qiunteros MD 02/25/2010 Nurse visit Lowell Quinteros MD 02/24/2010 Nurse visit Lowell Quinteros MD 02/15/2010 Office visit Tiki RAYMOND 01/07/2010 Office visit Tiki RAYMOND 01/04/2010 Office visit Tiki RAYMOND 11/27/2009 Office visit Lowell Quinteros MD 11/03/2009 Office visit Tiki RAYMOND 07/20/2009 Office visit Kylie Desouza MD
--- OUTSIDE RECORDS SUMMARY | 2017-09-16 11:32 | XMS REPORT ---
Author Author Alexandra Tejeda Organization [facility] Address [address] [place], [place] [id number] Care Team Providers Care Individual Small Group Instructor Name Role Phone Alexandra Tejeda PCP Unavailable Allergies and Adverse Reactions Name Reaction Notes PENICILLINS unknown mother told her as a child Plan of Treatment Planned Activity Comments Planned Date Planned Time Plan/Goal HELICOBACTER PYLORI ANTIBODY 12/11/2014 12:00 AM Medications Active Name Start Date Estimated Completion Date SIG Comments Carafate 1 gram oral tablet 12/11/2014 03/11/2015 take 1 tablet by oral route 3 times a day for 30 days Nexium 40 mg oral capsule,delayed release(DR/EC) 12/11/2014 03/11/2015 take 1 capsule by oral route daily for 30 days in the AM Name Start Date Expiration Date SIG Comments [...] Nausea & vomiting Active Back pain Active Helicobacter Pylori (H. 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 Use Tobacco Never smoker History of Procedures Date Ordered Description Order Status 12/11/2014 12:00 AM COMPLETE CBC W/AUTO DIFF WBC Returned 12/11/2014 12:00 AM COMPREHEN METABOLIC PANEL Returned 01/17/2011 12:00 AM URINE TEST Reviewed 01/17/2011 12:00 AM INSERT INTRAUTERINE DEVICE Reviewed 01/17/2011 12:00 AM Mirena Reviewed 03/22/2011 12:00 AM X-RAY EXAM SACRUM TAILBONE Reviewed 07/16/2012 12:00 AM Depo-Medrol 80 mg [facility]#[id number] Reviewed 07/16/2012 12:00 AM Decadron 4 mg [facility]#[id number] Reviewed 07/16/2012 12:00 AM THER/PROPH/DIAG INJ SC/IM [...] g/dLTOTAL BILI 0.60 mg/dLCALCIUM 9.20 mg/dLeGFR >60 mL/min/1.73m History Of Immunizations Not [...] 2014 9:29AM Diarrhea Dec 11 2014 9:29AM Payers Insurance Name Company Name Plan Name Plan Number Policy Number Policy Group Number Start Date [facility] [id number] N/A [facility] [place] [facility] [id number] N/A [facility] [id number] N/A [place] Medical Assistance [facility] Medical Assistance [facility] [id number] N/A [facility] [place] [facility] [id number] May History of Encounters Visit Date Visit Type Provider 12/11/2014 Office visit Alexandra Tejeda LONG TERM CARE PHLEBOTOMIST 09/03/2014 Office visit Adelso Ross MD 08/24/2014 Hospital Adelso Ross MD 08/15/2014 [facility] Adelso Ross MD 08/09/2014 Hospital Adelso Ross MD 08/06/2014 Hospital Adelso Ross MD 08/05/2014 Office visit Adelso Ross MD 08/01/2014 Office visit Olga Chavez LONG TERM CARE PHLEBOTOMIST 07/31/2014 [facility] Tea Benitez MD 07/30/2014 [facility] Tea Benitez MD 07/22/2014 [facility] Tea Benitez MD 07/21/2014 [facility] Tea Benitez MD 07/25/2013 Office visit Rohan Marlow LONG TERM CARE PHLEBOTOMIST 06/13/2013 Office visit Rohan Marlow LONG TERM CARE PHLEBOTOMIST 07/16/2012 Office visit Olga Chavez LONG TERM CARE PHLEBOTOMIST 03/22/2011 Office visit Alexandra Tejeda LONG TERM CARE PHLEBOTOMIST 02/15/2011 Office visit Alexandra Tejeda LONG TERM CARE PHLEBOTOMIST 01/17/2011 Office visit Johnathan Fitzpatrick MD 12/29/2010 Office visit Johnathan Fitzpatrick MD 10/11/2010 [facility] Johnathan Fitzpatrick MD 10/07/2010 Office visit Johnathan Fitzpatrick MD 09/29/2010 Office visit Johnathan Fitzpatrick MD 2010 Hospital Johnathan Fitzpatrick MD 07/28/2010 Office visit [...]
--- NOTE | 2017-09-16 11:34 | ED General ---
General Stated Complaint: VOMITTING Source of Information: Patient Exam Limitations: No Limitations History of Present Illness Date Seen by Provider: Sep 16, 2017 Time Seen by Provider: 11:32 Initial Comments to ER per private vehicle from home with reports of nausea and vomiting for 10 days. She's been seen at [facility] twice for this. She states she was given a prescription for nausea medication but is unemployed does not have insurance and could not afford the prescription. She is from [facility]. [place] she felt her nausea was too much and decided to come here. She's had intermittent episodes of nausea and vomiting for the past 9 years. She denies fevers chills or diarrhea. No bowel movement in the past few days. She denies any abdominal pain other than feeling achy all over from the vomiting. I questioned her specifically about THC use and she states she has used it before but not regularly. Timing/Duration: Intermittent Severity: Moderate Associated Systoms: Nausea/Vomiting Allergies and Home Medications Allergies Coded Allergies: No Known Drug Allergies (Unverified , 09/16/17) Home Medications Potassium Chloride 20 Meq Tablet.er, 40 MEQ PO DAILY Prescribed by: EDMUNDO BLAIR on 09/16/17 1249 Prochlorperazine Maleate 10 Mg Tablet, 10 MG PO TID PRN for NAUSEA/VOMITING-1ST LINE Prescribed by: EDMUNDO LBAIR on 09/16/17 1247 Patient Home Medication List Home Medication List Reviewed: Yes Review of Systems Constitutional: see HPI EENTM: see HPI Respiratory: no symptoms reported Cardiovascular: no symptoms reported Gastrointestinal: nausea, vomiting Genitourinary: no symptoms reported Musculoskeletal: no symptoms reported Skin: no symptoms reported Psychiatric/Neurological: No Symptoms Reported Hematologic/Lymphatic: No Symptoms Reported Immunological/Allergic: no symptoms reported Past [id number]-Zaxdfa Hx Patient Social History Recent Foreign Travel: No Contact w/Someone Who Travel: No Physical Exam Vital Signs Vital Signs - First Documented 09/16/17 11:25 Temp 96.6 Pulse 86 B/P (MAP) 143/103 (116) Pulse Ox 98 Capillary Refill : General Appearance: No Apparent Distress, WD/WN Eyes: Bilateral Eye Normal Inspection, Bilateral Eye PERRL, Bilateral Eye EOMI HEENT: PERRL/EOMI, TMs Normal Neck: Full Range of Motion, Normal Inspection Respiratory: No Accessory Muscle Use, No Respiratory Distress Cardiovascular: Regular Rate, Rhythm, Normal Peripheral Pulses Gastrointestinal: Normal Bowel Sounds, Non Tender, Soft Extremity: Normal Capillary Refill, Normal Inspection Neurologic/Psychiatric: Alert, Oriented x3 Skin: Normal Color, Warm/Dry Progress/Results/Core Measures Suspected Sepsis SIRS Temperature: Pulse: Respiratory Rate: Laboratory Tests 09/16/17 11:30: White Blood Count 15.6H Blood Pressure / Mean: Laboratory Tests 09/16/17 11:30: Creatinine 0.92, Platelet Count 399, Total Bilirubin 1.7H Results/Orders Lab Results Laboratory Tests Test 09/16/17 11:30 Range/Units White Blood Count 15.6 H 4.3-11.0 10^3/uL Red Blood Count 5.40 4.35-5.85 10^6/uL Hemoglobin 17.0 H 11.5-16.0 G/DL Hematocrit 43 35-52 % Mean Corpuscular Volume 79 L 80-99 FL Mean Corpuscular Hemoglobin 32 25-34 PG Mean Corpuscular Hemoglobin Concent 40 H 32-36 G/DL Red Cell Distribution Width 12.7 10.0-14.5 % Platelet Count 399 130-400 10^3/uL Mean Platelet Volume 10.4 7.4-10.4 FL Neutrophils (%) (Auto) 67 42-75 % Lymphocytes (%) (Auto) 19 12-44 % Monocytes (%) (Auto) 13 H 0-12 % Eosinophils (%) (Auto) 1 0-10 % Basophils (%) (Auto) 0 0-10 % Neutrophils # (Auto) 10.4 H 1.8-7.8 X 10^3 Lymphocytes # (Auto) 3.0 1.0-4.0 X 10^3 Monocytes # (Auto) 2.0 H 0.0-1.0 X 10^3 Eosinophils # (Auto) 0.2 0.0-0.3 10^3/uL Basophils # (Auto) 0.0 0.0-0.1 10^3/uL Neutrophils % (Manual) 65 % Lymphocytes % (Manual) 14 % Monocytes % (Manual) 12 % Eosinophils % (Manual) 0 % Basophils % (Manual) 0 % Band Neutrophils 0 % Reactive Lymphocytes 9 % Blood Morphology Comment NORMAL Urine Color YELLOW Urine Clarity SLIGHTLY CLOUDY Urine pH 7 5-9 Urine Specific [place] 1.010 L 1.016-1.022 Urine Protein 1+ H NEGATIVE Urine Glucose (UA) NEGATIVE NEGATIVE Urine Ketones NEGATIVE NEGATIVE Urine Nitrite NEGATIVE NEGATIVE Urine Bilirubin NEGATIVE NEGATIVE Urine Urobilinogen 8 H NORMAL MG/DL Urine Leukocyte Esterase 1+ H NEGATIVE Urine RBC (Auto) 2+ H NEGATIVE Urine RBC RARE /HPF Urine WBC 0-2 /HPF Urine Squamous Epithelial Cells 10-25 H /HPF Urine Crystals NONE /LPF Urine Bacteria NEGATIVE /HPF Urine Casts NONE /LPF Urine Mucus MODERATE H /LPF Urine Culture Indicated NO Sodium Level 134 L 135-145 MMOL/L Potassium Level 2.8 L 3.6-5.0 MMOL/L Chloride Level 91 L 98-107 MMOL/L Carbon Dioxide Level 24 21-32 MMOL/L Anion Gap 19 H 5-14 MMOL/L Blood Urea Nitrogen 10 7-18 MG/DL Creatinine 0.92 0.60-1.30 MG/DL Estimat Glomerular Filtration Rate > 60 BUN/Creatinine Ratio 11 Glucose Level 169 H 70-105 MG/DL Calcium Level 10.4 H 8.5-10.1 MG/DL Total Bilirubin 1.7 H 0.1-1.0 MG/DL Aspartate Amino Transf (AST/SGOT) 44 H 5-34 U/L Alanine Aminotransferase (ALT/SGPT) 73 H 0-55 U/L Alkaline Phosphatase 66 40-136 U/L Total Protein 7.8 6.4-8.2 GM/DL Albumin 4.9 H 3.2-4.5 GM/DL Lipase 19 8-78 U/L Serum Test, Qualitative NEGATIVE NEGATIVE Urine Opiates Screen NEGATIVE NEGATIVE Urine Oxycodone Screen NEGATIVE NEGATIVE Urine Methadone Screen NEGATIVE NEGATIVE Urine Propoxyphene Screen NEGATIVE NEGATIVE Urine Barbiturates Screen NEGATIVE NEGATIVE Ur Tricyclic Antidepressants Screen NEGATIVE NEGATIVE Urine Phencyclidine Screen NEGATIVE NEGATIVE Urine Amphetamines Screen NEGATIVE NEGATIVE Urine Methamphetamines Screen NEGATIVE NEGATIVE Urine Benzodiazepines Screen NEGATIVE NEGATIVE Urine Cocaine Screen NEGATIVE NEGATIVE Urine Cannabinoids Screen POSITIVE H NEGATIVE My Orders Orders - EDMUNDO BLAIR APRN Cbc With Automated Diff (09/16/17 11:23) Comprehensive Metabolic Panel (09/16/17 11:23) Lipase (09/16/17 11:23) Ua Culture If Indicated (09/16/17 11:23) Iv Heplock-Insert (Order) (09/16/17 11:23) Ondansetron Injection (Zofran Injectio (09/16/17 11:45) Promethazine Injection (Phenergan Injec (09/16/17 11:45) Ns Iv 1000 Ml (Sodium Chloride 0.9%) (09/16/17 11:45) Diphenhydramine Injection (Benadryl Inje (09/16/17 11:45) Prochlorperazine Injection (Compazine In (09/16/17 11:45) Hcg,Qualitative Serum (09/16/17 11:38) Drug Screen Stat (Urine) (09/16/17 11:38) Manual Differential (09/16/17 11:30) Potassium Cl 10meq/50ml Ivpb (Kcl 10 Meq (09/16/17 12:15) Potassium Chloride Powder (Klor Con 20 M (09/16/17 12:15) Diphenhydramine Injection (Benadryl Inje (09/16/17 12:30) Ns (Ivpb) (Sodium Chloride 0.9%) (09/16/17 14:00) Haloperidol Injection (Haldol Injectio (09/16/17 14:00) Medications Given in ED Current Medications Medications Dose Ordered Sig/Kp Route Start Time Stop Time Status Last Admin Dose Admin Diphenhydramine HCl 25 mg ONCE ONCE IVP 09/16/17 11:45 09/16/17 11:46 DC 09/16/17 11:50 25 MG Diphenhydramine HCl 25 mg ONCE ONCE IVP 09/16/17 12:30 09/16/17 12:31 DC 09/16/17 13:06 25 MG Haloperidol Lactate 3 mg ONCE ONCE IV 09/16/17 14:00 09/16/17 14:01 DC 09/16/17 13:59 3 MG Ondansetron HCl 8 mg ONCE ONCE IVP 09/16/17 11:45 09/16/17 11:46 DC 09/16/17 11:50 8 MG Potassium Chloride 40 meq ONCE ONCE PO 09/16/17 12:15 09/16/17 12:16 DC 09/16/17 12:22 40 MEQ Potassium Chloride 50 ml @ 50 mls/hr ONCE ONCE IV 09/16/17 12:15 09/16/17 13:14 DC 09/16/17 12:22 50 MLS/HR Prochlorperazine Edisylate 5 mg ONCE ONCE IV 09/16/17 11:45 09/16/17 11:46 DC 09/16/17 11:51 5 MG Sodium Chloride 250 ml @ 999 mls/hr Q16M ONCE IV 09/16/17 14:00 09/16/17 14:15 09/16/17 13:59 999 MLS/HR Vital Signs/I&O 09/16/17 11:25 Temp 96.6 Pulse 86 B/P (MAP) 143/103 (116) Pulse Ox 98 Capillary Refill : Departure Communication (Admissions) 1224- she feels overall improved at this point but somewhat nauseous still. I did discuss with her that she was positive for marijuana and that recurrent marijuana use has been shown to cause recurrent episodes of nausea and vomiting. She also states that she is staying at the [facility]. She states "my spends lots of money there so we get free rooms". Despite the statement she reports being unable to afford her Phenergan prescription. 1350- patient has not been vomiting until she was told she is going home. Now she is spitting into a cup and reports increase in nausea. she has not actually vomited any of the orange-colored potassium chloride powder dissolved in water that she was given. We will give3 mg of Haldol and 250 mils of normal saline as her symptoms may be related to cannabinoid hyperemesis syndrome and haldol has been shown to be useful for that. Impression Primary Impression: Marijuana use Additional Impressions: Nausea & vomiting Hypokalemia Disposition: 01 HOME, SELF-CARE Condition: Stable Departure-Patient Inst. Decision time for Depature: 12:43 Referrals: NO,LOCAL PHYSICIAN (PCP) Primary Care Physician Patient Instructions: Nausea and Vomiting, Adult Add. Discharge Instructions: 1. If you wish to stop these episodes of vomiting, YOU MUST QUIT USING MARIJUANA 2. Follow up with your doctor next week. 3. If you can spend money at the [facility], then you should spend a few dollars on your prescription medications. I called in a prescription for Compazine to [facility] pharmacy across the street and even called them to ask the cost of this medication. This is on the $4 list. Scripts Potassium Chloride (Potassium Chloride) 20 Meq Tablet.er 40 MEQ PO DAILY, #10 TAB Prov: EDMUNDO BLAIR APRN 09/16/17 Prochlorperazine Maleate (Compazine) 10 Mg Tablet 10 MG PO TID PRN for NAUSEA/VOMITING-1ST LINE, #14 TAB Prov: EDMUNDO BLAIR APRN 09/16/17 EDMUNDO BLAIR APRN Sep 16, 2017 11:34
--- OUTSIDE RECORDS SUMMARY | 2017-09-16 11:34 | XMS REPORT ---
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 Tobacco Never smoker History of Procedures Date Ordered Description Order Status 12/11/2014 12:00 AM COMPLETE CBC W/AUTO DIFF WBC Returned 12/11/2014 12:00 AM COMPREHEN METABOLIC PANEL Returned 01/17/2011 12:00 AM URINE TEST Reviewed 01/17/2011 12:00 AM INSERT INTRAUTERINE DEVICE Reviewed 01/17/2011 12:00 AM Mirena Reviewed 03/22/2011 12:00 AM X-RAY EXAM SACRUM TAILBONE Reviewed 07/16/2012 12:00 AM Depo-Medrol 80 mg [facility]#[id number] Reviewed 07/16/2012 12:00 AM Decadron 4 mg [facility]#[id number] Reviewed 07/16/2012 12:00 AM THER/PROPH/DIAG INJ SC/IM [...] Policy Number Policy Group Number Start Date [facility] [id number] N/A [facility] [id number] N/A [facility] [id number] N/A [place] Medical Assistance [facility] Medical Assistance [facility] [id number] N/A [facility] [place] [facility] [id number] May History of Encounters Visit Date Visit Type Provider 12/11/2014 Office visit Alexandra Tejeda ASSOCIATE DIRECTOR OF SALES 09/03/2014 Office visit Adelso Ross MD 08/24/2014 Hospital Adelso Ross MD 08/15/2014 [facility] Adelso Ross MD 08/09/2014 Hospital Adelso Ross MD 08/06/2014 Hospital Adelso Ross MD 08/05/2014 Office visit Adelso Ross MD 08/01/2014 Office visit Olga Chavez ASSOCIATE DIRECTOR OF SALES 07/31/2014 [facility] Tea Benitez MD 07/30/2014 [facility] Tea Benitez MD 07/22/2014 [facility] Tea Benitez MD 07/21/2014 [facility] Tea Benitez MD 07/25/2013 Office visit Rohan Marlow ASSOCIATE DIRECTOR OF SALES 06/13/2013 Office visit Rohan Marlow ASSOCIATE DIRECTOR OF SALES 07/16/2012 Office visit Olga Chavez ASSOCIATE DIRECTOR OF SALES 03/22/2011 Office visit Alexandra Teejda ASSOCIATE DIRECTOR OF SALES 02/15/2011 Office visit Alexandra Tejeda ASSOCIATE DIRECTOR OF SALES 01/17/2011 Office visit Johnathan iFtzpatrick MD 12/29/2010 Office visit Johnathan Fitzpatrick MD 10/11/2010 [facility] Johnathan Fitzpatrick MD 10/07/2010 Office visit Johnathan Fitzpatrick MD 09/29/2010 Office visit Johnathan Fitzpatrick MD 2010 Hospital Johnathan Fiztpatrick MD 07/28/2010 Office visit Lowell Quinteros MD [...]
--- OUTSIDE RECORDS SUMMARY | 2017-09-16 11:36 | XMS REPORT ---
Author Author Adelso Ross [facility] Address [address] [place], [place] [id number] Care Team Providers Care Spinning Lathe Operator Name Role Phone Adelso Ross PCP Unavailable Allergies and Adverse Reactions Name [...] HC BMI BSA BMI Percentile O2 Sat(%) 06/24/2015 10:49:00 AM 156 mmHg 86 mmHg 71 bpm 24 rpm 95.3 F 229 lbs 65 in 38.11 kg/m2 2.18 m2 100 % 03/24/2015 2:50:00 PM 130 mmHg 68 mmHg 67 bpm 18 rpm 97.2 F 245.375 lbs 65 in 40.8321 kg/m 2.2593 m 98 % 02/18/2015 9:45:00 AM 118 mmHg 79 mmHg 75 bpm 20 rpm 98.1 F 246.6 lbs 99 % 01/22/2015 9:08:00 AM 140 mmHg 80 mmHg 81 bpm 18 rpm 97.9 F 252.125 lbs 65 in 41.9554 kg/m 2.2902 m 99 % 12/11/2014 9:27:00 AM 132 mmHg [...] lbs 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 Tobacco Never smoker History [...] Reviewed 07/16/2012 12:00 AM Depo-Medrol 80 mg [facility]#[id number] Reviewed 07/16/2012 12:00 AM Decadron 4 mg [facility]#[id number] Reviewed 07/16/2012 12:00 AM THER/PROPH/DIAG INJ SC/IM [...] BILI 1.30 mg/dLCALCIUM 8.50 mg/dLeGFR >60 mL/min/1.73m History Of Immunizations Not [...] 10:52AM Dehydration, moderate Jun 24 2015 10:52AM Payers Insurance Name Company Name Plan Name Plan Number Policy Number Policy Group Number Start Date [facility] [id number] N/A zzzTest Medicare A Test Medicare A [id number] N/A [place] Medical Assistance Program [place] [facility]g [id number] N/[place] [facility] [place] [facility] [id number] [facility] [id number] N/A History of Encounters Visit Date Visit Type Provider 06/24/2015 Office visit Adelso Ross MD 04/24/2015 Hospital Adelso Ross MD 03/24/2015 Office visit Alexandra Tejeda RETAIL CONSULTANT 02/18/2015 Voided Olga Chavez RETAIL CONSULTANT 01/22/2015 Office visit Alexandra Tejeda RETAIL CONSULTANT 12/16/2014 Hospital Adelso Ross MD 12/15/2014 Hospital Adelso Ross MD 12/11/2014 Office visit Alexandra Tejeda RETAIL CONSULTANT 09/03/2014 Office visit Adelso Ross MD 08/24/2014 [facility] Adelso Ross MD 08/15/2014 [facility] Adelso Ross MD 08/09/2014 [facility] Adelso Ross MD 08/06/2014 Hospital Adelso Ross MD 08/05/2014 Office visit 08/05/2014 Office visit 08/05/2014 Office visit Adelso Ross MD 08/01/2014 Office visit Olga Chavez RETAIL CONSULTANT 07/31/2014 [facility] Tea Benitez MD 07/30/2014 [facility] Tea Benitez MD 07/22/2014 [facility] Tea Benitez MD 07/21/2014 [facility] Tea Benitez MD 07/25/2013 Office visit Rohan Marlow RETAIL CONSULTANT 06/13/2013 Office visit Rohan Marlow RETAIL CONSULTANT 07/16/2012 Office visit Olga Chavez RETAIL CONSULTANT 03/22/2011 Office visit Alexandra Tejeda RETAIL CONSULTANT 02/15/2011 Office visit Alexandra Tejeda RETAIL CONSULTANT 01/17/2011 Office visit Johnathan Fitzpatrick MD 12/29/2010 Office visit Johnathan Fitzpatrick MD 10/11/2010 [facility] Johnathan Fitzpatrick MD 10/07/2010 Office visit Johnathan Fitzpatrick MD 09/29/2010 Office visit Johnathan Fitzpatrick MD 2010 [facility] Johnathan Fitzpatrick MD 07/28/2010 Office visit [...]
--- OUTSIDE RECORDS SUMMARY | 2017-09-16 11:38 | XMS REPORT ---
Author Angelica Chavez [facility] Address [address] [place], [place] [id number] Care Team Providers Care Horse Rider Name Role Phone Angelica Haque PCP Olga Chavez PreferredProvider Unavailable Allergies and Adverse [...] oral route once daily for 30 days lisinopril 10 mg oral tablet 07/08/2016 08/07/2016 take 1 tablet (10 mg) by oral route once daily for [...] 2 times per day for 7 days Mirena 20 mcg/24 hr (5 years) intrauterine intrauterine device 05/27/201605/28 place 1 device by intrauterine route daily for 1 day Discontinued Name Start Date Discontinued Date SIG [...] RUQ Active Nausea & vomiting Active Back Pain Active Vital Signs Date Time BP-Sys(mm[Hg] BP-Tiffany(mm[Hg]) HR(bpm) RR(rpm) Temp WT HT HC BMI BSA BMI Percentile O2 Sat(%) 07/08/2016 11:07:00 AM 146 mmHg 84 mmHg 112 bpm 18 rpm 98.7 F 234.375 lbs 65 in 39.00 kg/m2 2.21 m2 96 % 07/08/2016 10:39:00 AM 156 mmHg 109 mmHg 94 bpm 99.5 F 235 lbs 65 in 39.1056 kg/m 2.211 m 05/27/2016 9:06:00 AM 102 mmHg 68 mmHg 78 bpm 1 rpm 97.9 F 251.6 lbs 65 in 41.87 kg/m2 2.29 m2 99 % 03/01/2016 9:42:00 AM 156 mmHg 85 mmHg 80 bpm 18 rpm 98.2 F 234 lbs 65 in 38.9392 kg/m 2.2063 m 02/22/2016 11:36:00 AM 158 mmHg 100 mmHg 89 bpm 20 rpm 95.5 F 224 lbs 65 in 37.28 kg/m2 2.16 m2 98 % 09/18/2015 11:14:00 AM 130 mmHg 72 mmHg 83 bpm 14 rpm 98.1 F 237.375 lbs 65 in 39.5009 kg/m 2.2222 m 98 % 06/24/2015 10:49:00 AM 156 mmHg [...] rpm 97 F 252 lbs 63 in 44.64 kg /m2 2.25 m2 99 % 03/22/2011 10:14:00 AM 128 mmHg 76 mmHg 82 bpm 18 rpm 98.1 F 217.375 lbs 65 in 36.1727 kg/m 2.1265 m 02/15/2011 10:32:00 AM 126 mmHg 62 mmHg 68 bpm 18 rpm 97.2 F 216.25 lbs 65.5 in 35.44 kg/m2 2.13 m2 01/17/2011 10:02:00 AM 128 mmHg 53 mmHg 74 bpm 97.6 F 205 lbs 65.5 in 33.5946 kg/m 2.073 m 12/29/2010 11:21:00 AM 123 mmHg 68 mmHg 72 bpm 97.2 F 205 lbs 65.5 in 33.59 kg/m2 2.07 m2 09/29/2010 3:19:00 PM 123 mmHg 66 mmHg 80 bpm 98.4 F 212.375 lbs 65.5 in 34.8032 kg/m 2.1099 m 07/28/2010 10:29:00 AM 115 mmHg 70 mmHg [...] lbs 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 Use Tobacco Never smoker History [...] 09/18/2015 12:00 AM Decadron, Per 1 Mg [facility]# [address]-28 Reviewed 09/18/2015 12:00 AM Depo-Medrol, Per 80 Mg [facility]#[address]-59 Reviewed 03/01/2016 12:00 AM REMOVE INTRAUTERINE DEVICE Reviewed 02/22/2016 12:00 AM COMPLETE CBC W/AUTO DIFF WBC Returned 02/22/2016 12:00 AM COMPREHEN METABOLIC PANEL Returned 05/27/2016 12:00 AM INSERT INTRAUTERINE DEVICE Reviewed 05/27/2016 12:00 AM Levonorgestrel-releasing IUD contraceptive system, 52 mg 5 year Reviewed 07/16/2012 12:00 AM Depo-Medrol 80 mg [facility]#[id number] Reviewed 07/16/2012 12:00 AM Decadron 4 mg [facility]#[id number] Reviewed 07/16/2012 12:00 AM THER/PROPH/DIAG INJ SC/IM [...] Abdominal Pain, RUQ Nausea & vomiting Back Pain Helicobacter Pylori (H. Pylori) Infection , Other [...] for IUD removal Mar 01 2016 4:02PM Encounter for insertion of mirena IUD May 27 2016 9:16AM Essential hypertension Jul 08 2016 11:13AM Hypokalemia Jul 08 2016 11:13AM IUD Check/Removal/Management/Reinsertion Jul 08 2016 10:43AM Payers Insurance Name Company Name Plan Name Plan Number Policy Number Policy Group Number Start Date [facility] [id number] N/A zzzTest Medicare A Test Medicare A [id number] N/A [place] [employer] [place] [id number] N/A [facility] [place] [facility] [id number] May [facility] [id number] N/A History of Encounters Visit Date Visit Type Provider 07/08/[address] Angelica Haque DO 07/08/2016 Office visit Emilia Echeverria SOFTWARE DESIGN ENGINEER 05/27/2016 Procedures Emilia Echeverria SOFTWARE DESIGN ENGINEER 03/01/2016 Office visit Emilia Echeverria SOFTWARE DESIGN ENGINEER 02/22/2016 Office visit Adelso Ross MD 09/18/2015 Office visit Rohan Marlow SOFTWARE DESIGN ENGINEER 06/25/2015 Hospital Adelso Ross MD 06/24/2015 Office visit Adelso Ross MD 04/24/2015 Hospital Adelso Ross MD 03/24/2015 Office visit Alexandra Tejeda SOFTWARE DESIGN ENGINEER 02/18/2015 Voided Olga Chavez SOFTWARE DESIGN ENGINEER 01/22/2015 Office visit Alexandra Tejeda SOFTWARE DESIGN ENGINEER 12/16/2014 Hospital Adelso Ross MD 12/15/2014 Hospital Adelso Ross MD 12/11/2014 Office visit Alexandra Tejeda SOFTWARE DESIGN ENGINEER 09/03/2014 Office visit Adelso Ross MD 08/24/2014 Hospital Adelso Ross MD 08/15/2014 Hospital Adelso Ross MD 08/09/2014 Hospital Adelso Ross MD 08/06/2014 Hospital Adelso Ross MD 08/05/2014 Office visit 08/05/2014 Office visit 08/05/2014 Office visit Adelso Ross MD 08/01/2014 Office visit Olga Chavez SOFTWARE DESIGN ENGINEER 07/31/2014 Hospital Tea Benitez MD 07/30/2014 [facility] Tea Benitez MD 07/22/2014 [facility] Tea Benitez MD 07/21/2014 Hospital Tea Benitez MD 07/25/2013 Office visit Rohan Marlow SOFTWARE DESIGN ENGINEER 06/13/2013 Office visit Rohan Marlow SOFTWARE DESIGN ENGINEER 07/16/2012 Office visit Olga Chavez SOFTWARE DESIGN ENGINEER 03/22/2011 Office visit Alexandra Nikhil SOFTWARE DESIGN ENGINEER 02/15/2011 Office visit Alexandra Tejeda SOFTWARE DESIGN ENGINEER 01/17/2011 Office visit Johnathan Fitzpatrick MD 12/29/2010 Office visit Johnathan Fitzpatrick MD 10/11/2010 [facility] Johnathan Fitzpatrick MD 10/07/2010 Office visit Johnathan Fitzpatrick MD 09/29/2010 Office visit Johnathan Fitzpatrick MD 2010 [facility] Johnathan Fitzpatrick MD 07/28/2010 Office visit [...]
[2017-09-16 11:39] LABS: BASOPHILS % (AUTO) 0 % (0-10); EOSINOPHILS # (AUTO) 0.2 10^3/uL (0.0-0.3); EOSINOPHILS % (AUTO) 1 % (0-10); HEMATOCRIT 43 % (35-52); LYMPHOCYTES % (AUTO) 19 % (12-44); MEAN CORPUSCULAR HEMOGLOBIN 32 PG (25-34); MEAN CORPUSCULAR HGB CONC 40 G/DL (32-36); MEAN CORPUSCULAR VOLUME 79 FL (80-99); MEAN PLATELET VOLUME 10.4 FL (7.4-10.4); MONOCYTES % (AUTO) 13 % (0-12); NEUTROPHILS # (AUTO) 10.4 X 10^3 (1.8-7.8); NEUTROPHILS % (AUTO) 67 % (42-75); PLATELET COUNT 399 10^3/uL (130-400); RED CELL DISTRIBUTION WIDTH 12.7 % (10.0-14.5); WHITE BLOOD COUNT 15.6 10^3/uL (4.3-11.0)
--- OUTSIDE RECORDS SUMMARY | 2017-09-16 11:39 | XMS REPORT ---
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 Medications Active Name Start Date Estimated Completion Date SIG Comments Mobic oral tablet 15 mg 06/13/2013 take 1 tablet (15 mg) by oral route once daily Reglan oral tablet 10 mg 08/01/2014 take 1 tablet (10 mg) by oral route 4 times per day as needed for nausea and/or vomiting Name Start Date Expiration Date SIG Comments Lotrisone Topical Cream 1-0.05 % 11/03/2009 11/10/2009 apply to the affected and surrounding areas of skin by topical route 2 times per day morning and evening for 7 days Zithromax Z-Willian Oral Tablet 250 mg 01/04/2010 01/09/2010 take 2 tablets ( 500 mg) by oral route once daily for 1 day then 1 tablet (250 mg) by oral route once daily for 4 days Macrobid Oral Capsule 100 mg 04/29/2010 05/06/2010 take 1 capsule (100 mg) by oral route every 12 hours with food for 7 days Zofran Oral Tablet 4 mg 05/21/2010 06/20/2010 One tablet every 8 hours as needed for nausea Clotrimazole Topical Cream 1 % 05/25/2010 07/24/2010 apply to the affected and surrounding areas of skin by topical route 2 times per day in the morning and evening for 30 days Zofran Oral Tablet 8 mg 09/30/2010 09/30/2010 Take one tablet every 8 hours as needed for nausea acyclovir Oral Tablet 400 mg 10/05/2010 11/04/2010 take 1 tablet by oral route 2 times a day for 30 days Flexeril Oral Tablet 10 mg 02/15/2011 take 1 tablet by mouth at bedtime. cyclobenzaprine oral tablet 10 mg 06/13/2013 07/04/2013 take 1 tablet (10 mg) by oral route 3 times per day for 21 days azithromycin oral tablet 250 mg 07/25/2013 07/30/2013 take 2 tablets (500 mg) by oral route once daily for 1 day then 1 tablet (250 mg) by oral route once daily for 4 days Discontinued Name Start Date Discontinued Date SIG Comments Valtrex Oral Tablet 500 mg 10/04/2010 10/05/2010 take 1 tablet (500 mg) by oral route daily for 30 days Formulary Compliance Problem List Not available. 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 History of Past Illness Name Date of Onset Comments *No known medical problems IUD Check/Removal Jul 20 2009 2:12PM Tinea [...] 8:56AM , Undelivered Mar 05 2010 8:56AM , Other Normal Apr 22 2010 12:39PM [...] Nausea and vomiting Aug 01 2014 9:29AM Payers Insurance Name Company Name Plan Name Plan Number Policy Number Policy Group Number Start Date [facility] [place] [id number] N/A [place] [employer] [place] [id number] N/A [facility] [place] [facility] [id number] May [facility] [id number] N/A History of Encounters Visit Date Visit Type Provider 08/01/2014 Office visit Olga Chavez BROOMCORN SCRAPER 07/21/2014 [facility] Tea Benitez MD 07/25/2013 Office visit Rohan Marlow BROOMCORN SCRAPER 06/13/2013 Office visit Rohan Marlow BROOMCORN SCRAPER 07/16/2012 Office visit Olga Chavez BROOMCORN SCRAPER 03/22/2011 Office visit Alexandra Tejeda BROOMCORN SCRAPER 02/15/2011 Office visit Alexandra Tejeda BROOMCORN SCRAPER 01/17/2011 Office visit Johnathan Fitzpatrick MD 12/29/2010 Office visit Johnathan Fitzpatrick MD 10/11/2010 [facility] Johnathan Fitzpatrick MD 10/07/2010 Office visit Johnathan Fitzpatrick MD 09/29/2010 Office visit Johnathan Fitzpatrick MD 2010 [facility] Johnathan Fitzpatrick MD 07/28/2010 Office visit Lowell Quinteros MD 06/21/2010 Office visit Lowell Quinteros MD 05/21/2010 Office visit Lowell Quinteros MD 04/29/2010 Office visit Lowell Quinteros MD 04/22/2010 Office visit Lowell Quinteors MD 03/05/2010 Office visit Lowell Quinteros MD [...]
--- OUTSIDE RECORDS SUMMARY | 2017-09-16 11:41 | XMS REPORT ---
Author Author [facility] Organization [facility] Address [address] [place], [place] [id number] Care Team Providers Care Quick Technician Name Role Phone PCP Unavailable Allergies and Adverse Reactions Name Reaction Notes PENICILLINS unknown mother told her as a child Plan of Treatment Planned Activity Comments Planned Date Planned Time Plan/Goal COMPREHEN METABOLIC PANEL 08/05/2014 12:00 AM COMPLETE CBC W/AUTO DIFF WBC 08/05/2014 12:00 AM Medications Active Name Start Date Estimated Completion Date SIG Comments Reglan oral tablet 10 mg 08/01/2014 take 1 tablet (10 mg) by oral route 4 times per day as needed for nausea and/or vomiting Ambien oral tablet 10 mg take 1 tablet (10 mg) by oral route once daily at bedtime Name Start Date Expiration Date SIG Comments [...] daily for 30 days Formulary Compliance Mobic oral tablet 15 mg 06/13/2013 08/05/2014 take 1 tablet (15 mg) by oral route once daily Problem List Description Status Onset Abdominal pain, RUQ Active Nausea & vomiting Active Back pain Active Vital Signs Date Time BP-Sys(mm[Hg] BP-Tiffany(mm[Hg]) HR(bpm) RR(rpm) Temp WT HT HC BMI BSA BMI Percentile O2 Sat(%) 08/05/2014 9:55:00 AM 132 mmHg 86 mmHg [...] 252 lbs 63 in 44.64 kg /m2 2.2541 m 99 % 03/22/2011 10:14:00 AM 128 mmHg 76 mmHg 82 bpm 18 rpm 98.1 F 217.375 lbs 65 in 36.1727 kg/m 2.13 m2 02/15/2011 10:32:00 AM 126 mmHg 62 mmHg 68 bpm 18 rpm 97.2 F 216.25 lbs 65.5 in 35.44 kg/m2 2.1291 m 01/17/2011 10:02:00 AM 128 mmHg 53 mmHg 74 bpm 97.6 F 205 lbs 65.5 in 33.5946 kg/m 2.07 m2 12/29/2010 11:21:00 AM 123 mmHg [...] lbs 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 [id number] N/A [facility] [place] [id number] N/A [place] [employer] [place] Pro[place] [id number] N/A [facility] [place] [facility] Clinic [id number] May History of Encounters Visit Date Visit Type Provider 08/05/2014 Office visit Adelso Ross MD 08/01/2014 Office visit Olga Chavez GRANULATOR TENDER 07/21/2014 [facility] Tea Benitez MD 07/25/2013 Office visit Rohan Marlow GRANULATOR TENDER 06/13/2013 Office visit Rohan Marlow GRANULATOR TENDER 07/16/2012 Office visit Olga Chavez GRANULATOR TENDER 03/22/2011 Office visit Alexandra Tejeda GRANULATOR TENDER 02/15/2011 Office visit Alexandra Tejeda GRANULATOR TENDER 01/17/2011 Office visit Johnathan Fitzpatrick MD 12/29/2010 [...]
[2017-09-16 11:42] LABS: BILIRUBIN,URINE NEGATIVE (NEGATIVE); CLARITY,URINE SLIGHTLY CLOUDY; COLOR,URINE YELLOW; GLUCOSE, URINE (UA) NEGATIVE (NEGATIVE); KETONES,URINE NEGATIVE (NEGATIVE); LEUKOCYTE ESTERASE ,URINE 1+ (NEGATIVE); NITRITE,URINE NEGATIVE (NEGATIVE); PH,URINE 7 (5-9); PROTEIN,URINE 1+ (NEGATIVE); UROBILINOGEN,URINE 8 MG/DL (NORMAL)
[2017-09-16] MEDS ORDERED: diphenhydrAMINE 50 MG/ML INJ (BENADRYL) IVP ONE ×2 (11:45→12:30)
[2017-09-16] MEDS ORDERED: ONDANSETRON 4 MG/2 ML (SDV) Z0FRAN IVP ONE (11:45)
[2017-09-16] MEDS ORDERED: NS IV 1000 ML 1,000 ML IV SCH (11:45)
[2017-09-16] MEDS ORDERED: PROMETHAZINE INJ 25 MG/ML (PHENERGAN) AMP IVP ONE (11:45)
[2017-09-16] MEDS ORDERED: PROCHLORPERAZINE 10 MG/2ML INJ (COMPAZINE) IV ONE (11:45)
[2017-09-16 11:52] LABS: BACTERIA,URINE NEGATIVE /HPF; RBC,URINE RARE /HPF; WBC,URINE 0-2 /HPF
[2017-09-16 11:55] LABS: AMPHETAMINE SCREEN, URINE NEGATIVE (NEGATIVE); BARBITURATE SCREEN URINE NEGATIVE (NEGATIVE); BENZODIAZEPINES SCREEN URINE NEGATIVE (NEGATIVE); CANNABINOID SCREEN, URINE POSITIVE (NEGATIVE); COCAINE SCREEN URINE NEGATIVE (NEGATIVE); METHADONE STAT NEGATIVE (NEGATIVE); METHAMPHETAMINE SCREEN URINE S NEGATIVE (NEGATIVE); OPIATE SCREEN URINE NEGATIVE (NEGATIVE); OXYCODONE STAT NEGATIVE (NEGATIVE); PROPOXYPHENE STAT NEGATIVE (NEGATIVE); TRICYCLIC ANTIDEPRESSANTS SCRE NEGATIVE (NEGATIVE)
[2017-09-16 11:57] LABS: ALANINE AMINOTRANSFERASE 73 U/L (0-55); ALBUMIN 4.9 GM/DL (3.2-4.5); ALKALINE PHOSPHATASE 66 U/L (40-136); BILIRUBIN,TOTAL 1.7 MG/DL (0.1-1.0); BUN/CREATININE RATIO 11; CALCIUM 10.4 MG/DL (8.5-10.1); CARBON DIOXIDE 24 MMOL/L (21-32); CHLORIDE 91 MMOL/L (98-107); CREATININE SERUM 0.92 MG/DL (0.60-1.30); GFR ESTIMATED > 60; GLUCOSE 169 MG/DL (70-105); LIPASE 19 U/L (8-78); POTASSIUM 2.8 MMOL/L (3.6-5.0); SODIUM 134 MMOL/L (135-145); TOTAL PROTEIN 7.8 GM/DL (6.4-8.2)
[2017-09-16] MEDS ORDERED: KCL 20 MEQ POWDER FOR ORAL SOLUTION PO ONE (12:15)
[2017-09-16] MEDS ORDERED: POTASSIUM CL 10MEQ/50ML IVPB 50 ML IV ONE (12:15)
[2017-09-16 12:19] LABS: BAND NEUTROPHILS 0 %; BASOPHILS % (MANUAL) 0 %; EOSINOPHILS % (MANUAL) 0 %; LYMPHOCYTES % (MANUAL) 14 %; MONOCYTES % (MANUAL) 12 %; NEUTROPHILS % (MANUAL) 65 %; RBC MORPH NORMAL; REACTIVE LYMPHOCYTES 9 %
[2017-09-16] MEDS ORDERED: PROC-1 PO (12:47)
[2017-09-16] MEDS ORDERED: POTA-51 PO (12:49)
[2017-09-16] MEDS ORDERED: NS (IVPB) 250 ML IV ONE (14:00)
[2017-09-16] MEDS ORDERED: HALOPERIDOL 5 MG/ML (HALDOL) AMP IV ONE (14:00)
[2017-09-16 14:31] VITALS: BP 149/71
== END 2017-09-16 14:34 | disposition home or self-care (01) ==
LOC: ER 11:21
DX: R11.2 Nausea with vomiting, unspecified (principal); E87.6 Hypokalemia; F12.90 Cannabis use, unspecified, uncomplicated
CPT/HCPCS: 36415; 80053; 80306; 81000; 83690; 84703; 85007; 85027; 96361; 96365; 96375; 96376